=== PATIENT | male | born 1960 | race Caucasian/White ===

== ENCOUNTER 2023-07-30 13:24 | Outpatient (CLI) | payer OTHER, SELFPAY | END 2023-07-30 13:25 | disposition home or self-care (01) | LOC: AMB 08-12 23:47 | PROVIDERS: Visit Provider Family Medicine | DX: S11.91XA Laceration without foreign body of unspecified part of neck, initial encounter (principal); X78.1XXA Intentional self-harm by knife, initial encounter; Y92.009 Unspecified place in unspecified non-institutional (private) residence as the place of occurrence of the external cause | CPT/HCPCS: A0425; A0427 ==

== ENCOUNTER 2023-08-30 12:27 | Outpatient (RCR) | payer OTHER, SELFPAY | END 2023-12-28 23:59 | disposition home or self-care (01) | PROVIDERS: Visit Provider Nurse Practitioner Gerontology | DX: R13.10 Dysphagia, unspecified (principal); F41.9 Anxiety disorder, unspecified; S11.91XA Laceration without foreign body of unspecified part of neck, initial encounter; Z51.89 Encounter for other specified aftercare | CPT/HCPCS: 92610 ==

== ENCOUNTER 2024-05-02 20:58 | Emergency (ER) | payer MEDICAID, SELFPAY ==
[2024-05-02 21:02] VITALS: BP 156/93; PULSE 68; RESP 18; TEMP 37.1; O2SAT 97; BMI 25.5
--- NOTE | 2024-05-02 21:18 | CRLHL7_ITS ---
For Patients: As a result of the Century Cures Act, medical imaging exams and procedure reports are released immediately into your electronic medical record. You may view this report before your referring provider. If you have questions, please contact your health care provider. Indication: Right-sided abdominal and gallbladder pain Technique: CT through the abdomen and pelvis following 84 mL Isovue 370 IV contrast Comparison: None Findings: Lower chest: Mild atelectasis and/or scarring with no acute abnormality appreciated. Hepatobiliary: Mild prominence of the gallbladder lumen with slight wall thickening, nonspecific. Spleen: Unremarkable. Pancreas: No acute abnormality appreciated. Adrenal glands: No acute abnormality appreciated. Kidneys: No significant parenchymal abnormality appreciated. No visualized calculi. No hydronephrosis. Bowel: No obstruction. No focal perienteric or pericolonic stranding is appreciated. The appendix is visualized and appears unremarkable. Vascular: No acute abnormality appreciated. Trace calcified atherosclerosis. Lymph nodes: No gross lymphadenopathy. Peritoneum: No free air. No free fluid. : No acute abnormality appreciated. Soft tissues: No acute abnormality appreciated. Bones: No acute fracture. No lytic or blastic lesion. Degenerative changes of the spine and pelvis. Impression: Small heterogeneous focus along the distal common bile duct, could represent a small focus of pneumobilia or a radiolucent gallstone and choledocholithiasis. Otherwise, there is mild prominence of the gallbladder lumen with slight wall thickening, which is indeterminate for cholecystitis. Ultrasound or MRI/MRCP recommended for further evaluation. Please note that all CT scans at this facility use dose modulation, iterative reconstruction, and/or weight-based dosing when appropriate to reduce radiation dose to as low as reasonably achievable. Dictated by Jens Castro MD @ 05/02/2024 11:36:50 PM (Electronically Signed)
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
[2024-05-02] MEDS: ONDANSETRON 2 MG/ML inj 4 MG IVP (21:45)
[2024-05-02] MEDS: KETOROLAC 15 MG/ML inj IVP (21:45)
[2024-05-02] MEDS: 0.9 % SODIUM CHLORIDE 1000 ml 1,000 ML IV (21:49)
[2024-05-02 21:51] LABS: Lactate* 1.3 mmol/L (0.5-1.9)
[2024-05-02 22:08] LABS: Albumin* 5.2 g/dL (3.3-5.0); Chloride* 104 mmol/L (96-114)
[2024-05-02 22:09] LABS: Potassium* 4.2 mmol/L (3.6-5.1); Sodium* 139 mmol/L (135-149)
[2024-05-02 22:11] LABS: Alanine Aminotransferase* 25 U/L (4-50); Alkaline Phosphatase* 81 U/L (40-150); Anion Gap 7 mEq/L (7-15); Aspartate Amino Transferase* 32 U/L (12-35); Bilirubin Total* 0.7 mg/dL (0.1-1.5); Blood Urea Nitrogen* 15 mg/dL (7-30); Carbon Dioxide* 28 mmol/L (20-32); Creatinine* 0.7 mg/dL (0.5-1.5); Est. Creatinine Clearance* 74.63; Estimated Glomerular Filt Rate 103 ml/min; Glucose* 131 mg/dL (60-115); Lipase* 38 U/L (23-300); Total Protein* 7.4 g/dL (6.0-8.3)
[2024-05-02 22:12] LABS: Calcium* 9.2 mg/dL (8.4-10.6)
[2024-05-02 22:43] LABS: C Reactive Protein* < 0.5 mg/dL (0.5-1.0)
[2024-05-02 22:55] LABS: Basophils Absolute Auto 0.02 K/uL (0.00-0.30); Basophils Percent Auto 0.2 % (0.0-3.0); Eosinophils Absolute Auto 0.02 K/uL (0.00-0.50); Eosinophils Percent Auto 0.2 % (0.0-7.0); Hematocrit 43.9 % (37.0-53.0); Hemoglobin* 14.6 gm/dL (13.5-17.5); Immature Granulocytes Abs Auto 0.09 K/uL (0.00-0.30); Lymphocytes Percent Auto 6.5 % (20-44); Mean Corpuscular HGB Conc 33 gm/dL (32-36); Mean Corpuscular Hemoglobin 29 pg (26-34); Mean Corpuscular Volume 86 fL (80-100); Neutrophils Percent Auto 88.1 % (42.0-72.0); Platelet Count* 173 K/uL (140-440); Red Blood Count 5.08 m/uL (4.30-5.90); White Blood Count* 9.43 K/uL (4.50-11.00)
[2024-05-02 22:58] LABS: Slide Review Reflex No
== END 2024-05-03 00:41 | disposition home or self-care (01) ==
PROVIDERS: Emergency Provider Family Medicine; PCP Family Medicine
DX: K80.50 Calculus of bile duct without cholangitis or cholecystitis without obstruction (principal)
CPT/HCPCS: 36415; 74177; 80053; 81001; 83605; 83690; 85025; 86140; 96374; 96375; 99284; 99285; J1885; J2405; J7030; Q9967

== ENCOUNTER 2024-05-03 09:47 | Day surgery (SDC) | payer MEDICAID, SELFPAY ==
[2024-05-03 09:57] VITALS: BP 143/85; PULSE 82; RESP 18; TEMP 37.2; O2SAT 97; BMI 25.5
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
--- NOTE | 2024-05-03 11:11 | CRLHL7_ITS ---
For Patients: As a result of the Cures Act, medical imaging exams and procedure reports are released immediately into your electronic medical record. You may view this report before your referring provider. If you have questions, please contact your health care provider. INDICATION: Right upper quadrant pain. TECHNIQUE: Ultrasound abdomen limited to evaluation of the gallbladder and common bile duct. COMPARISON: CT abdomen and pelvis 05/02/2024. FINDINGS: Gallbladder: Nonshadowing stones or sludge. Mild wall thickening. No pericholecystic fluid. Common bile duct: 5 mm. No free fluid evident. IMPRESSION: 1. Mild gallbladder wall thickening with nonshadowing stones or sludge. Early cholecystitis may be considered in the appropriate clinical setting. 2. No biliary ductal dilatation. Dictated by Bereket Aguirre MD @ 05/03/2024 12:58:24 PM Dictated by: Bereket Aguirre MD @ 05/03/2024 12:58:40 (Electronically Signed)
[2024-05-03] MEDS: MORPHINE 4 MG/ML INJ IVP (11:30)
[2024-05-03] MEDS: 0.9 % SODIUM CHLORIDE 1000 ml 1,000 ML IV (11:30)
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
--- OUTSIDE RECORDS SUMMARY | 2024-05-03 11:33 | XMS_ITS | Clinical Summary ---
Author Organization [facility] Address [address] [place] [address] Care Team Providers Care Dog Races Manager Name Role Phone Elsewhere, Pcp Primary Care Provider Unavailabl e Source Comments Patient records contain information from all sites at [facility]. For routine questions regarding patient records, call [phone] during business hours, M-F 8:00 AM - 5:00 PM Central Time. Record requests for emergency care only can be directed to [phone] at any time.[facility] Active Problems No known active problems Encounters Date Type Department Care Team Description 03/09/2024 1:30 PM CDT Comprehensive [facility] [place], [place] [address] [place] [address] David Prince III, M.D. Scar (Primary Dx) 03/09/2024 1:00 PM CDT Comprehensive Visit [facility] [place], [place] [address] [place] [address] Ric Watson M.D. Scar (Primary Dx) 03/09/2024 12:00 PM CDT Ancillary Procedure Department of Dermatology from Last 3 Months Family History Medical History Relation Name Comments Colon cancer Father Coronary artery disease Father Relation Name Status Comments Father Social History Tobacco Use Types Packs/Day Years Used Date Smoking Tobacco: Never Assessed Nutrition Answer Date Recorded Nutrition: EVOO Fat Source Unknown 02/14 Nutrition: Servings of Fruits/Vegetables per Day Not on file 02/15/2024 Dental Answer Date Recorded Dental: Regular Dentist Unknown 02/15/20 Sex and Gender Information Value Date Recorded Sex Assigned at Not on file Gender Identity Not on file Sexual Orientation Not on file Plan of Treatment Health Maintenance Due Date Last Done Comments CT Colonography 1960 Cologuard 1960 HIV Screening 1960 Hepatitis C Screening 1960 Depression Screening (Annual PHQ-2) 11/08/2023 DTaP,Tdap,and Td Vaccines (2 - Td or Tdap) 06/19/2026 06/19/2016 Fasting Glucose for Diabetes Screening 07/26/2026 07/26/2023 Lipid (Cholesterol) Screening 12/27/2028 12/27/2023 Colonoscopy 04/21/2029 04/21/2024 Colorectal Cancer Surveillance 04/21/2029 Influenza Vaccine Completed 08/19/2023 COVID-19 Vaccine Completed 10/22/2023, 03/11/2021, 02/18/2021 Zoster Vaccines Completed 02/15/2024, 10/22/2023 Pneumococcal vaccine (0-64 years) Aged Out No longer eligible b ased on patient's age to complete this topic Procedures Procedure Name Priority Date/Time Associated Diagnosis Comments DERMATOLOGY IMAGE EXAM Routine 12:00 PM CDT EXTI LIPID PANEL W REFLEX MEASURED LDL Routine 12/27/2023 8:04 AM CONTACT LENS BLOCKER EXTI COMPREHENSIVE METABOLIC PANEL, S/P Routine 07/26/2023 11:27 AM CDT from Last 3 Months or Most Recently Relevant to Health Maintenance Results * Neck-Dermatology Image Exam (03/09/2024 12:00 PM CDT) 03/09/2024 12:0 0 PM CDT Narrative [facility] - 03/09/2024 1:46 PM CDT This order has been created and auto-finalized to support the import of images acquired without order. The clinical documentation to support these images can be found on the encounter that produced images. Provider Not In System IMG NON RAD IMAGI NG PROCEDURES [facility] NA from Last 3 Months or Most Recently Relevant to Health Maintenance Care Teams Dog Races Manager Relationship Specialty Start Date End Date Elsewhere, Pcp PCP - General 10/21/18
--- OUTSIDE RECORDS SUMMARY | 2024-05-03 11:33 | XMS_ITS | Referral Summary ---
Author Organization [facility] Address [address] [place] [address] Care Team Providers Care Still Operator Helper Name Role Phone Elsewhere, Pcp Primary Care Provider Unavailabl e Source Comments Patient records contain information from all sites at [facility]. For routine questions regarding patient records, call [phone] during business hours, M-F 8:00 AM - 5:00 PM Central Time. Record requests for emergency care only can be directed to [phone] at any time.[facility] Encounters Date Type Department Care Team Description 03/09/2024 1:30 PM CDT [facility] in [place], [place] [address] [place] [address] David Prince III, M.D. Scar (Primary Dx) 03/09/2024 12:00 PM CDT Ancillary Procedure Department of Dermatology 03/09/2024 1:00 PM CDT Comprehensive [facility] [place], [place] [address] [place] [address] Ric Watson M.D. Scar (Primary Dx) from Last 3 Months Active Problems No known active problems Social History Tobacco Use Types Packs/Day Years [...] Orientation Not on file Plan of Treatment Not on file Procedures Procedure Name Priority Date/Time Associated Diagnosis Comments DERMATOLOGY IMAGE EXAM Routine 12:00 PM CDT EXTI LIPID PANEL W REFLEX MEASURED LDL Routine 12/27/2023 8:04 AM POCKET OPERATOR EXTI COMPREHENSIVE METABOLIC PANEL, S/P Routine 07/26/2023 [...] Recently Relevant to Health Maintenance Care Teams Still Operator Helper Relationship Specialty Start Date End Date Elsewhere, Pcp PCP - General 10/21/18
--- OUTSIDE RECORDS SUMMARY | 2024-05-03 11:33 | XMS_ITS | Referral Summary ---
Author Organization [facility] Address [address] [place] [address] Phone Care Team Providers Care Jeweler Apprentice Name Role Phone Unavailable Primary Care Provider Unavailabl e Source Comments Handseeing Information is fully rolled out on [employer]. Last update 04/12/09.[employer] Allergies No known active allergies Medications * [...] 08/18/2023 8:00 PM CDT Plan of Treatment Not on file Medical Devices Implanted Type Area Certified Ophthalmic Surgical Assistant Device Identifier Shelf Expiration Date Model / Serial / Lot Ligaclip,Medium [id number] Implanted:Qty: 6 on 07/30/2023 by Radha Aviles MD at [facility] [employer] 03/07/2028 [id number] / / [id number] Ligaclip,Small Lt100 Implanted:Qty: 6 on 07/30/2023 by Rivera Álvarez MD at [facility] Neck [employer] 03/07/2027 [id number] / / [id number] Procedures Procedure Name Priority Date/Time Associated Diagnosis Comments PANEL LIPID Routine 08/19/2023 8:44 AM CDT PC HIV-1 AG W/HIV-1 & HIV-2 AB Routine 08/09/2023 5:05 PM CDT from Last 3 Months or Most Recently Relevant to Health Maintenance Results * PANEL LIPID (08/19/2023 8:44 AM CDT) Calc LDL 85 <=100 mg/dL [facility] Comment: Interpretive Data <100 Desirable 100-129 Above desirable 130-159 Borderline high 160-189 High >=190 Very high Cholesterol 154 <=200 mg/dL [facility] Comment: Interpretive Data <200 Desirable 200-239 Borderline high >=240 High Non-HDL Cholesterol Calculated 109 <=130 mg/dL [facility] Comment: Interpretive Data <130 Desirable 130-159 Above desirable 160-189 Borderline high 190-219 High >=220 Very high HDL 45 >=40 mg/dL [facility] Comment: Interpretive Data Normal > 40 Male > 50 Female Triglyceride 118 <=150 mg/dL [facility] Comment: Interpretive Data <150 Normal 150-199 Borderline high 200-499 High >=500 Very high Blood 08/19/2023 8:44 AM CDT 08/19/2023 8:49 AM CDT Narrative [facility] - 08/19/2023 9:24 AM CDT Fasting: No Radha Tuttle MD LABORATORY Performing Organization Address City/[facility] Co de Phone Number [facility] [address] [address] * HIV COMBO (08/09/2023 5:05 PM CDT) HIV Antigen-Antibody Nonreactive Nonreactive [facility] Comment:Performance characte ristics have not been established with this test on patients less than 2 years of age. Blood 08/09/2023 5:05 PM CDT 08/09/2023 5:15 PM CDT Radha Aviles MD LABORATORY [facility] [address] [place] [address] from Last 3 Months or Most Recently Relevant to Health Maintenance Advance Directives For more information, please contact: [phone] Documents on File Type Date Recorded Patient United [place] Marshal Expl anation Advance Directives and Living Will [...]
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
--- OUTSIDE RECORDS SUMMARY | 2024-05-03 11:33 | XMS_ITS ---
Author Organization [facility] Address [address] [place] [address] Care Team Providers Care Restaurant Inspector Name Role Phone Unavailable Unavailable Unavailable Surgery Details Not on file Complications Check Surgery Details section. Procedure Estimated Blood Loss Check Surgery Details section. Procedure Findings Check Surgery Details section. Procedure Specimens Taken Check Surgery Details section.
--- OUTSIDE RECORDS SUMMARY | 2024-05-03 11:33 | XMS_ITS | Clinical Summary ---
Author Organization [employer] [facility] Address [place], [place] [address] Care Team Providers Care Knotter Name Role Phone Dionicio Robert MD Primary Care Provider [phone]- [phone] Allergies No known active allergies Medications Medication Sig Dispensed Refills Start Date End Date Status polyethylene glycoL (Miralax) 17 gram/scoop powder Mix 1 scoop in liquid then take by mouth once daily. Active atorvastatin (LIPITOR) 40 mg tabletIndications: CVD (arteriosclerotic cardiovascular disease) Take 1 Tablet (40 mg) by mouth once daily. 90 Tablet 3 11/16/2023 Active polyethylene glycol-electrolyte (GOLYTELY) 236-22.74-6.74 -5.86 gram suspensionIndication s:Encounter for screening colonoscopy Drink 2 liters (1/2 of prep) the day before colonoscopy and drink 2 liters (other 1/2 of prep) 6 hours before colonoscopy appointment. 4000 mL 02/15/2024 Active multivit,thx,calcium ,iron,mins (MULTIVITAMIN AND MINERAL ORAL) Take by mouth. Active gabapentin (NEURONTIN) 100 mg capsuleIndications:A nxiety Take 1 Capsule (100 mg) by mouth every morning. 90 Capsule 1 02/21/2024 Active QUEtiapine (SEROQUEL) 50 mg tabletIndications:Br ief psychotic disorder (HC) Take 1 Tablet (50 mg) by mouth once daily. 90 Tablet 1 02/21/2024 Active Hospital, Clinic, or Other Facility Administered Medication Ordered Dose Route Frequency Start Date End Date Status fentaNYL (PF) (SUBLIMAZE) 50 mcg/mL injection 100 mcgIndications:Screening for colon cancer 100 mcg IV ONE TIME 04/21/2024 04/21/2024 Ended midazolam (VERSED) injection 3 mgIndications:Screening for colon cancer 3 mg IV ONE TIME 04/21/2024 04/21/2024 Ended Active Problems Problem Noted Date Diagnosed Date Colon polyp 04/25/2024 Overview: Colonoscopy 04/2024 TA, repeat in 7 years Anxiety 10/20/2023 Psychosis 10/20/2023 Essential hypertension 10/20/2023 Back spasm 06/19/2016 Encounters Date Type Department Care Team Description 04/21/2024 8:00 AM CDT Office Visit [facility] [address] [facility] [place] [address] Dawood King MD Procedure (Colonoscopy) 04/21/2024 Travel 04/18/2024 Telephone [facility] [address] [facility] [place] [address] Dawood King MD Appointment Reminder (Colonoscopy 04/21/24) 03/13/2024 8:00 AM CDT Ancillary Procedure [address] [place] [address] 03/13/2024 Travel 02/22/2024 3:45 PM CDT Office Visit [facility] [address] [facility] [place] [address] Argelia Mcgrath MD Consult (Gallbladder referred by Dr. Robert) 02/22/2024 1:30 PM CDT Office Visit [facility] [place] [address] Dionicio Robert MD Results (Go over the ultrasound results) 02/21/2024 7:30 AM CDT Office Visit [facility] [place] [facility] [place] [address] Elsa Casanova NP Medication Management (Things are going good) 02/21/2024 Travel 02/18/2024 8:15 AM CDT Ancillary Procedure [facility] [address] [facility] [place] [address] 02/18/2024 Travel 02/15/2024 2:45 PM CDT Office Visit [address] [place] [address] Dionicio Robert MD Abdominal Pain (RUQ abdominal pain - comes and goes x 1 month); Immunization/Inject ion 02/15/2024 Telephone [facility] [address] [place] [address] Dawood King MD Appointment 02/15/2024 Travel 02/15/2024 Nurse Triage [facility] [address] [place] [address] Dionicio Robert MD Abdominal Pain from Last 3 Months Immunizations Name Administration Dates Next Due COVID-19 Vaccine Spikevax (M oderna 50mcg/0.5mL) 12YO+ [id number] Formula PF 10/22/2023 Influenza Virus, Unspecified 08/19/2023 Influenza, IIV4 08/19/2023 Tdap 06/19/2016 Zoster (Shingrix-RZV, recombinant) 02/15/2024, Family History Medical History Relation Name Comments Cancer-colon Father Rectal Heart Disease Father Stents, CABGx4 at 77 Other Mother hemorrhoids Relation Name Status Comments Father Mother Social History Tobacco Use Types Packs/Day Years Used Date Smoking Tobacco: Never Passive Smoke Exposure: Never Smokeless Tobacco: Never Tobacco Cessation:Counseling Given: Yes Alcohol Use Standard Drinks/Week Comments Not Currently 0 (1 standard drink = 0.6 oz pur e alcohol) PHQ-2 Answer Date Recorded PHQ-2 TOTAL SCORE 0 02/21/2024 Social Connections Answer Date Recorded Frequency of Communication with Friends and Fami ly 0 02/15/2024 Financial Resource Strain Answer Date R ecorded Difficulty of Paying Living Expenses 3 02/15/2024 Difficulty of Paying Living Expenses Not on file 02/15/2024 Food Insecurity Answer Date Recorded Worried About Running Out of Food in the Last Ye ar 1 02/15/2024 Transportation Needs Answer Date Record ed Lack of Transportation (Medical) 1 02/15/2024 Housing Stability Answer Date Recorded Unable to Pay for Housing in the Last Year 1 02/15/2024 Sex and Gender Information Value Date Recorded Sex Assigned at Not on file Gender Identity Not on file Sexual Orientation Not on file Obstetrics History Last Filed Vital Signs Vital Sign Reading Time Taken Comments Blood Pressure 114/69 04/21/2024 9:16 AM CDT Pulse 61 04/21/2024 9:16 AM CDT Temperature 36.7 ??C (98.1 ??F) 02/15/2024 2:51 PM CD T Respiratory Rate 14 04/21/2024 9:16 AM CDT Oxygen Saturation 97% 04/21/2024 9:16 AM CDT Inhaled Oxygen Concentration - - Weight 82.5 kg (181 lb 14.4 oz) 02/22/2024 3:50 PM CDT Height 174 cm (5' 8.5) 07/26/2023 10:4 4 AM CDT Body Mass Index 27.26 07/26/2023 10:44 AM CDT Plan of Treatment Upcoming Encounters Date Type Department Care Team (Late st Contact Info) Description 05/22/2024 8:20 AM CDT Office Visit [facility] [address] [place] [address] Yogi Romano MD [address] [place] [address] 06/26/2024 7:30 AM CDT Office Visit [facility] [address] [place] [address] Elsa Casanova NP [address] [place] [address] Health Maintenance Due Date Last Done Comments HIV for age 15-65 1975 Hepatitis C screening for age 18-79 1978 Influenza for age 50-64 07/09/2024 08/19/2023, 08/19 BMI (ht and wt on same day) for age 18+ 07/26/2024 07/26/2023, 05/05/2021, 06/19/2016 Depression screening for age 12+ 02/21/2025 02/22/2024, 02/22/2024, 02/21/2024, Additional history exists Tetanus booster 06/19/2026 06/19/2016 Lipids for age 45-75 12/27/2028 12/27/2023, 06/24/20 16 Colonoscopy through age 75 04/21/203104/21, 04/21/2024, 04/21/2024 Tdap Completed 06/19/2016 COVID-19 vaccine series Completed 10/22/20, 03/11/2021, 02/18/2021 Zoster (shingles) series for age 50+ Completed 02/15/2024, 10/22/2023 Pneumococcal series for age 6-64 Aged Out No longer eligible based on patient's age to complete this topic Procedures Procedure Name Priority Date/Time Associated Diagnosis Comments PATH TISSUE EXAM Routine 04/21/2024 8:39 AM CDT Screening for colon cancer Polyp of colon, unspecified part of colon, unspecified type COLONOSCOPY 04/21/2024 7:54 AM CDT COLONOSCOPY SCREENING Routine 04/21/2024 7:49 AM CDT Screening for colon cancer MR ABDOMEN WWO Routine 03/13/2024 9:12 AM CDT Gall bladder polyp vs. sludge HEPATIC FUNCTION PANEL Routine 02/22/2024 4:26 PM CDT Gall bladder polyp vs. sludge US ABDOMEN LIMITED Routine 02/18/2024 8: 44 AM CDT Abdominal pain, RUQ (right upper quadrant) LIPID PANEL W REFLEX MEASURED LDL Routine 12/27/2023 8:04 AM PODIATRIC AIDE ASCVD (arteriosclerotic cardiovascular disease) from Last 3 Months or Most Recently Relevant to Health Maintenance Results * PATH TISSUE EXAM (04/21/2024 8:39 AM CDT) Case Report Pathology Report ?Case: [id number] ? Authorizing Provider: ??Dawood King MD ?? Collected: ? 04/21/2024 0839 ? Ordering Location: ? [facility] ?? Received: ?04/21/2024 1239 ? Clinic ? Pathologist: ? Darcy James, ? Specimen: ?Transverse Colon Polyp ? 04/24/2024 11:13 AM CDT [facility] Final Diagnosis A) COLON, TRANSVERSE, POLYPECTOMY: 1. Tubular adenoma 2. Negative for high grade dysplasia 3. Per the colonoscopy report: ?? a. Polyp size: 3 mm ?? b. Resection: Complete ?? c. Retrieval: Complete 04/24/2024 11:13 AM T [facility] Clinical Information Mr. Leigh is a 64 y.o. who presents for colonoscopy examination. A 3 mm polyp was identified in the transverse colon. 04/24/2024 11:13 AM CDT [facility] Gross Description A) Received in formalin are 3 danielle mucosal fragments ranging from 1 mm to 3 mm in greatest dimension, which are entirely submitted in one cassette. It is labeled with the patient's name and designated Soniya Baires 04/22/2024 10:53 AM 04/24/2024 11:13 AM CDT [facility] Microscopic Description The final diagnosis is based on microscopic examination of appropriate sections of all specimens. 04/24/2024 11:13 AM CDT [facility] Additional Information Interpreted at [facility] - [address] [place] [address] [address] [address] 04/24/2024 11:13 AM CDT [facility] Other (Transverse Colon Polyp) Non-Blood / Unknown 04/21/2024 8:39 AM CDT 04/21/2024 12:39 PM CDT Dawood King MD PATHOLOGY/CYTOLOG Y Performing Organization Address City/State/[facility] Co de Phone Number [facility] [address] [place] [address], * COLONOSCOPY (04/21/2024 7:54 AM CDT) 04/21/2024 7:54 AM CDT Narrative Transcriptions Dawood King MD - 04/21/2024 9:04 AM CDT Patient Name: Bony Leigh Procedure Date: 04/21/2024 Gender: Male Date of : 1960 Admit Type: Outpatient Procedure: Colonoscopy Proceduralist: Dawood King MD , Michelle Arroyo, CASSY(Nurse), Joy Han (Nurse) Referring MD: Dionicio Robert Indications/Pre-Op Diagnosis: Screening for colorectal malignant neoplasm, This is the patient's first colonoscopy Medications: Fentanyl 100 micrograms IV, Midazolam 3 mgIV, The level of sedation administered wasmoderate Procedure Description: The patient had risks, benefits and alternatives explained to andgave informed consent. The patient had a stable cardiopulmonary status and judged an adequate candidate for conscious sedation. The [id number] was passed through the anus and advanced to the cecum, identified by appendiceal orifice and ileocecal valve. Thecolonoscopy was performed without difficulty. The patient tolerated the procedure well. The quality of the bowel preparation was good. The ileocecal valve, appendiceal orifice, and rectum were photographed. Complications: No immediate complications. Estimated Blood Loss & Specimen: Estimated blood loss: none. Specimen collected - Yes and sent to Laboratory Findings: The perianal and digital rectal examinations were normal. A 3 mm polyp was found in the proximal transverse colon. The polypwas sessile. The polyp was removed with a cold snare. Resection and retrieval were complete. The exam was otherwise without abnormality. Impressions/Post-Op Diagnosis: - One 3 mm polyp in the proximal transverse colon, removed with acold snare. Resected and retrieved. - The examination was otherwise normal. Recommendation: - Patient has a contact number available for emergencies. The signsand symptoms of potential delayed complications were discussed with the patient. Return to normal activities tomorrow. Written discharge instructions were provided to the patient. - Resume previous diet. - Continue present medications. - Await pathology results. - Repeat colonoscopy is recommended. The colonoscopy date will be determined after pathology results from today's exam become available for review. Moderate Sedation: A time out was performed before the procedure. Moderate (conscious) sedation was administered by the endoscopy nurse and supervised bythe endoscopist. The following parameters were monitored: oxygensaturation, heart rate, blood pressure, EKG, CO2, respiratory rate, adequacy of pulmonary ventilation and reponse to care. Please refer to the patient's medical record flowsheets and nursing notes for moderate sedation details. Total physician intraservice time was 21 minutes. Dawood King MD 04/21/2024 9:04:55 AM This report has been signed electronically. Note Initiated On: 04/21/2024 7:54 AM Procedure Code(s): --- Professional --- 58670, Colonoscopy, flexible; with removalof tumor(s), polyp(s), or other lesion(s) bysnare technique Diagnosis Code(s): --- Professional --- Z12.11, Encounter for screening formalignant neoplasm of colon D12.3, Benign neoplasm of transverse colon (hepatic flexure or splenic flexure) CPT copyright 2022 [employer]. All rights reserved. The codes documented in this report are preliminary and upon electrical systems designer reviewmay be revised to meet current compliance requirements. Scope In: 8:32:52 AM Scope Withdrawal Time 0 hours 8 minutes 57 seconds Scope Out: 8:51:03 AM Dawood King MD PROCEDURE ORD * MR ABDOMEN W/WO CONTRAST (03/13/2024 9:12 AM CDT) Anatomical Region Laterality Modality Abdomen, LIVER, PANCREAS, KIDNEYS, AORTA Magnetic Resonance 03/14/2024 6:47 AM CDT Impressions 03/14/2024 6:47 AM CDT 1. Negative for gallbladder polyp/mass. Gallbladder sludge noted. 2. Flash-filling 0.8 cm liver segment 6 hemangioma and multiple subcentimeter liver cysts. 3. Subcentimeter left renal parenchymal cyst. Dictated by Christiano Javier MD @ 03/14/2024 6:47:53 AM (Electronically Signed) Narrative 03/14/2024 6:47 AM CDT For Patients: ??As a result of the 21st Century Cures Act, medical imaging exams and procedure reports are released immediately into your electronic medical record. ??You may view this report before your referring provider. ??If you have questions, please contact your health care provider. INDICATION: Gallbladder polyp versus adherent sludge ball as seen on ultrasound TECHNIQUE: Multiplanar imaging of the abdomen was performed without and with 8 cc of Gadavist contrast material IV. COMPARISON: Right upper quadrant ultrasound 02/18/2000 FINDINGS: The masslike structure seen in the gallbladder on the previous ultrasound has no corresponding finding on this examination. No gallbladder wall thickening or abnormal contrast enhancement along the gallbladder wall is evident. Dependent gallbladder sludge is noted in the neck. Bile duct dilation is evident. The liver is normal in size and shape. A flash-filling 0.8 cm hemangioma is demonstrated in the periphery of liver segment 6. Multiple subcentimeter cysts are also demonstrated in the liver. The liver is otherwise unremarkable. The spleen, adrenal glands and pancreas are within normal limits. The kidneys are unremarkable except for a subcentimeter left renal parenchymal cyst. No lymphadenopathy is apparent. No intrinsic bowel abnormality is evident. No free fluid is demonstrated. Procedure Note Christiano Javier MD - 03/14/2024 For Patients: As a result of the Cures Act, medical imagingexams and procedure reports are released immediately into your electronicmedical record. You may view this report before your referring provider.If you have questions, please contact your health care provider. INDICATION: Gallbladder polyp versus adherent sludge ball as seen on ultrasound TECHNIQUE: Multiplanar imaging of the abdomen was performed without and with 8 cc ofGadavist contrast material IV. COMPARISON: Right upper quadrant ultrasound 02/18/2000 FINDINGS: The masslike structure seen in the gallbladder on the previous ultrasoundhas no corresponding finding on this examination. No gallbladder wallthickening or abnormal contrast enhancement along the gallbladder wall isevident. Dependent gallbladder sludge is noted in the neck. Bile ductdilation is evident. The liver is normal in size and shape. A flash-filling 0.8 cm hemangiomais demonstrated in the periphery of liver segment 6. Multiplesubcentimeter cysts are also demonstrated in the liver. The liver isotherwise unremarkable. The spleen, adrenal glands and pancreas are within normal limits. Thekidneys are unremarkable except for a subcentimeter left renal parenchymalcyst. No lymphadenopathy is apparent. No intrinsic bowel abnormality isevident. No free fluid is demonstrated. IMPRESSION: 1. Negative for gallbladder polyp/mass. Gallbladder sludge noted. 2. Flash-filling 0.8 cm liver segment 6 hemangioma and multiplesubcentimeter liver cysts. 3. Subcentimeter left renal parenchymal cyst. Dictated by Christiano Javier MD @ 03/14/2024 6:47:53 AM (Electronically Signed) Argelia Mcgrath MD MR * HEPATIC FUNCTION PANEL (02/22/2024 4:26 PM CDT) ALBUMIN 4.5 4.0 - 4.9 g/dL 02/23/2024 1:54 PM CDT [facility] PROTEIN,TOTAL 6.6 6.0 - 8.0 g/dL 02/23/2024 1:54 PM CDT [facility] BILIRUBIN,TOTAL 0.3 0.0 - 1.2 mg/dL 02/23/2024 1:54 PM CDT [facility] BILIRUBIN,DIRECT <0.2 0.0 - 0.3 mg/dL 02/23/2024 1:54 PM CDT [facility] BILIRUBIN,INDIRE CT 02/23/2024 1:54 PM CDT [facility] Comment:Unable to calculate, Direct Bili <0.2 ALK PHOSPHATASE 102 40 - 129 IU/L 02/23/2024 1:54 PM CDT [facility] ALT (SGPT) 30 10 - 50 IU/L 02/23/2024 1:54 PM CDT [facility] AST (SGOT) 38 10 - 50 IU/L 02/23/2024 1:54 PM CDT [facility] Blood BLOOD SPECIMEN / Unknown Venipuncture / Unknown 02/22/2024 4:26 PM CDT 02/22/2024 4:26 PM CDT Argelia Mcgrath MD CHEMISTRY [facility] [address] [place] [address], [place] * US ABDOMEN LIMITED (02/18/2024 8:44 AM CDT) Anatomical Region Laterality Modality Abdomen, LIVER, KIDNEYS, PANCREAS, GALLBLADDER, SPLEEN Ultrasound 02/18/2024 3:25 PM CDT Impressions 02/18/2024 3:25 PM CDT Adherent ovoid structure associated with the dependent gallbladder wall measuring 1.7 cm, possible polyp versus adherent sludge ball. No biliary obstruction. Dictated by Alonzo Tineo MD @ 02/18/2024 3:25:46 PM (Electronically Signed) Narrative 02/18/2024 3:25 PM CDT For Patients: ??As a result of the Cures Act, medical imaging exams and procedure reports are released immediately into your electronic medical record. ??You may view this report before your referring provider. ??If you have questions, please contact your health care provider. INDICATION: Abdominal pain COMPARISON: none TECHNIQUE: Real time gillette scale imaging and color Doppler analysis was performed of the right upper quadrant. FINDINGS: The patient`s liver is of normal size and has uniform echogenicity. ??There is a normal appearance of the hepatic IVC and proximal abdominal aorta. There is no evidence of ascites. The gallbladder is of normal size and there is an ovoid structure associated with the posterior gallbladder wall at the gallbladder neck measuring 1.7 cm. The gallbladder wall measures 2 mm in thickness. ??The common bile duct is of normal size and measures 5 mm in diameter at the level of the lilia hepatis. ??The pancreas is not well visualized. There is no evidence of a stone or hydronephrosis within the right kidney. ??The right kidney measures 11.4 cm in length. ?? Procedure Note Alonzo Tineo MD - 02/18/2024 For Patients: As a result of the Cures Act, medical imagingexams and procedure reports are released immediately into your electronicmedical record. You may view this report before your referring provider.If you have questions, please contact your health care provider. INDICATION: Abdominal pain COMPARISON: none TECHNIQUE: Real time gillette scale imaging and color Doppler analysis was performed ofthe right upper quadrant. FINDINGS: The patient`s liver is of normal size and has uniform echogenicity. Thereis a normal appearance of the hepatic IVC and proximal abdominal aorta.There is no evidence of ascites. The gallbladder is of normal size andthere is an ovoid structure associated with the posterior gallbladder wallat the gallbladder neck measuring 1.7 cm. The gallbladder wall measures 2mm in thickness. The common bile duct is of normal size and measures 5 mmin diameter at the level of the lilia hepatis. The pancreas is not wellvisualized. There is no evidence of a stone or hydronephrosis within theright kidney. The right kidney measures 11.4 cm in length. IMPRESSION: Adherent ovoid structure associated with the dependent gallbladder wallmeasuring 1.7 cm, possible polyp versus adherent sludge ball. No biliaryobstruction. Dictated by Alonzo Tineo MD @ 02/18/2024 3:25:46 PM (Electronically Signed) Dionicio Robert MD US * LIPID PANEL W REFLEX MEASURED LDL (12/27/2023 8:04 AM PODIATRIC AIDE) CHOLESTEROL,TOTAL 139 100 - 199 mg/dL 12/27/2023 2:19 PM PODIATRIC AIDE [facility] [employer] [facility] Comment: Cholesterol, Total Reference Ranges Desirable <200 mg/dL Borderline 200-239 mg/dL High >=240 mg/dL TRIGLYCERIDES 105 <150 mg/dL 12/27/2023 2:19 PM PODIATRIC AIDE [facility] HDL CHOLESTEROL 62 >40 mg/dL 2:19 PM PODIATRIC AIDE [facility] NON-HDL CHOLESTEROL 77 <145 mg/dl 12/27/2023 2:19 PM PODIATRIC AIDE [facility] CHOL/HDL RATIO 2.24 <4.50 12/27/2023 2:19 PM PODIATRIC AIDE [facility] LDL CHOLESTEROL 56 <=130 mg/dL 12/27/2023 2:19 PM PODIATRIC AIDE [facility] VLDL CHOLESTEROL 21 <=30 mg/dL 12/27/2023 2:19 PM PODIATRIC AIDE [facility] PROVIDER ORDERED STATUS RANDOM 12/27/2023 2:19 PM PODIATRIC AIDE [facility] Blood BLOOD SPECIMEN / Unknown Venipuncture / Unknown 12/27/2023 8:04 AM PODIATRIC AIDE 12/27/2023 8:06 AM PODIATRIC AIDE Mack Turcios MD CHEMISTRY [facility] [address] [place] [address], from Last 3 Months or Most Recently Relevant to Health Maintenance Care Teams Knotter Relationship Specialty Start Date End Date Dionicio Robert MD [address] [place] [address] PCP - General Family Practice 06/17/16
--- OUTSIDE RECORDS SUMMARY | 2024-05-03 11:33 | XMS_ITS | Encounter Summary ---
Author Organization [facility] Address [address] [place] [address] Care Team Providers Care Cylinder Sander Operator Name Role Phone Elsewhere, Pcp Primary Care Provider Unavailabl e Encounter Details Date Type Department Care Team (Late st Contact Info) Description 03/09/2024 12:00 PM CDT Ancillary Procedure Department of Dermatology Social History Tobacco Use Types Packs/Day Years [...] on file documented as of this encounter Plan of Treatment Not on file documented as of this encounter Procedures Procedure Name Priority Date/Time Associated Diagnosis Comments DERMATOLOGY IMAGE EXAM Routine 03/09/2024 12:00 PM CDT documented in this encounter Results * Neck-Dermatology Image Exam (03/09/2024 12:00 [...] NON RAD IMAGI NG PROCEDURES IIMS NA documented in this encounter Visit Diagnoses Not on filedocumented in this encounter Care Teams Cylinder Sander Operator Relationship Specialty Start Date End Date Elsewhere, Pcp PCP - General 10/21/18 documented as of this encounter
[2024-05-03 12:29] LABS: Basophils Percent Auto 0.1 % (0.0-3.0); Hematocrit 42.7 % (37.0-53.0); Hemoglobin* 14.1 gm/dL (13.5-17.5); Immature Granulocytes Pct Auto 0.1 %; Lymphocytes Percent Auto 3.1 % (20-44); Mean Corpuscular HGB Conc 33 gm/dL (32-36); Mean Corpuscular Hemoglobin 29 pg (26-34); Mean Corpuscular Volume 88 fL (80-100); Monocytes Percent Auto 7.9 % (0.0-11.0); Neutrophils Percent Auto 88.8 % (42.0-72.0); Platelet Count* 136 K/uL (140-440); RDW Coefficient of Variation % 13.2 % (11.5-15.5); Red Blood Count 4.88 m/uL (4.30-5.90); White Blood Count* 12.09 K/uL (4.50-11.00)
[2024-05-03 12:56] LABS: Albumin* 4.5 g/dL (3.3-5.0); Chloride* 105 mmol/L (96-114)
[2024-05-03 12:57] LABS: Sodium* 137 mmol/L (135-149)
[2024-05-03 12:58] LABS: Slide Review Reflex No
[2024-05-03 12:59] LABS: Anion Gap 7 mEq/L (7-15); Aspartate Amino Transferase* 32 U/L (12-35); Bilirubin Direct* 0.2 mg/dL (0.0-0.5); Bilirubin Total* 1.2 mg/dL (0.1-1.5); Carbon Dioxide* 25 mmol/L (20-32); Creatinine* 0.6 mg/dL (0.5-1.5); Est. Creatinine Clearance* 74.63; Estimated Glomerular Filt Rate 108 ml/min; Total Protein* 6.7 g/dL (6.0-8.3)
[2024-05-03] MEDS: KETOROLAC 15 MG/ML inj IVP (12:59)
[2024-05-03 13:00] LABS: Alanine Aminotransferase* 24 U/L (4-50); Alkaline Phosphatase* 72 U/L (40-150); Blood Urea Nitrogen* 13 mg/dL (7-30); Calcium* 8.6 mg/dL (8.4-10.6); Glucose* 119 mg/dL (60-115); Lipase* 111 U/L (23-300)
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
[2024-05-03 13:02] LABS: C Reactive Protein* 1.8 mg/dL (0.5-1.0)
[2024-05-03 14:04] VITALS: BP 143/85; PULSE 83; RESP 18; TEMP 36.8; O2SAT 98; BMI 26.2
[2024-05-03 14:15] VITALS: RESP 18; O2SAT 98
[2024-05-03 15:00] VITALS: RESP 18; O2SAT 98
[2024-05-03] MEDS: PIPERACILLIN/TAZOBACTAM 3.375 GM in 0.9 % SODIUM CHLORIDE Mini-bag 100 ML IVPB ×2 (15:59→20:39)
[2024-05-03] MEDS: LACTATED RINGERS 1000 ML 1,000 ML 125 ML IV ×2 (16:01→23:33)
--- NOTE | 2024-05-03 18:03 | PC.NURSE ---
shift note: pt to floor with 0/10 pain. abd slightly distended and tender in RUQ on palpation. BS x4. last stated BM 05/02/24. IV Lt AC patent.
[2024-05-03 19:00] VITALS: BP 137/86; PULSE 92; RESP 18; TEMP 37.3; O2SAT 93
[2024-05-03] MEDS: HYDROmorphone 0.5 mg/0.5 ml inj IVP ×2 (19:12→20:44)
[2024-05-03] MEDS: QUETIAPINE 25 MG TABLET 50 MG PO (20:39)
[2024-05-03] MEDS: HYDROCODONE-ACETAMIN 5-325 MG 1 TAB PO (21:14)
[2024-05-03 23:00] VITALS: BP 116/78; PULSE 78; RESP 20; TEMP 36.8; O2SAT 93
[2024-05-04] VITALS (22 sets, daily range): BP systolic 103–153; BP diastolic 66–87; PULSE 68–102; RESP 14–18; TEMP 36.7–37.8; O2SAT 87–96
[2024-05-04] MEDS: HYDROmorphone 0.5 mg/0.5 ml inj IVP (02:24)
[2024-05-04] MEDS: PIPERACILLIN/TAZOBACTAM 3.375 GM in 0.9 % SODIUM CHLORIDE Mini-bag 100 ML IVPB ×2 (02:24→07:44)
[2024-05-04] MEDS: HYDROCODONE-ACETAMIN 5-325 MG 1 TAB PO ×2 (02:58→20:00)
--- NOTE | 2024-05-04 05:51 | PC.NURSE ---
End of shift report [id number]: Patient alert and oriented x 4. Pain to upper right abdomen well managed with current regimen. NPO since 05/03/24 at 0100. Abdomen firm and tender to the touch. Ambulates independently.
--- OUTSIDE RECORDS SUMMARY | 2024-05-04 07:55 | XMS_ITS | Referral Summary ---
Author Organization [facility] Address [address] [place] [phone] Phone Care Team Providers Care Claims Service Representative Name Role Phone Unavailable Primary Care Provider Unavailabl e Source Comments EnWave is fully rolled out on [employer]. Last update 04/12/09.[employer] Allergies No known active allergies Medications * [...] on file Medical Devices Implanted Type Area Marketing And Public Relations Manager Device Identifier Shelf Expiration Date Model / Serial / Lot Ligaclip,Medium [id number] Implanted:Qty: 6 on 07/30/2023 by Radha Aviles MD at [facility] [employer] 03/07/2028 [id number] / / [id number] Ligaclip,Small Lt100 Implanted:Qty: 6 on 07/30/2023 by Rivera Álvarez MD at [facility] [employer]ck [employer] 03/07/2027 [id number] / / [id number] Procedures Procedure Name Priority Date/Time Associated Diagnosis Comments PANEL LIPID Routine 08/19/2023 8:44 AM CDT PC HIV-1 AG W/HIV-1 & HIV-2 AB Routine 08/09/2023 5:05 PM CDT from Last 3 Months or Most Recently Relevant to Health Maintenance Results * PANEL LIPID (08/19/2023 8:44 AM CDT) Calc LDL 85 <=100 mg/dL [facility] Comment: Interpretive Data <100 Desirable 100-129 Above desirable 130-159 Borderline high 160-189 High >=190 Very high Cholesterol 154 <=200 mg/dL [facility] Comment: Interpretive Data <200 Desirable 200-239 Borderline high >=240 High Non-HDL Cholesterol Calculated 109 <=130 mg/dL [facility] Comment: Interpretive Data <130 Desirable 130-159 Above desirable 160-189 Borderline high 190-219 High >=220 Very high HDL 45 >=40 mg/dL [facility] Comment: Interpretive Data Normal > 40 Male > 50 Female Triglyceride 118 <=150 mg/dL [facility] Comment: Interpretive Data <150 Normal 150-199 Borderline high 200-499 High >=500 Very high Blood 08/19/2023 8:44 AM CDT 08/19/2023 8:49 AM CDT Narrative [facility] - 08/19/2023 9:24 AM CDT Fasting: No Radha Tuttle MD LABORATORY Performing Organization Address City/[facility] Co de Phone Number [facility] [address] [address] * HIV COMBO (08/09/2023 5:05 PM CDT) HIV Antigen-Antibody Nonreactive Nonreactive [facility] Comment:Performance characte ristics have not been established with this test on patients less than 2 years of age. Blood 08/09/2023 5:05 PM CDT 08/09/2023 5:15 PM CDT Radha Aviles MD LABORATORY [facility] [address] [place] [address] from Last 3 Months or Most Recently Relevant to Health Maintenance Advance Directives For more information, please contact: [phone] Documents on File Type Date Recorded Patient Sign Builder Supervisor Expl anation Advance Directives and Living Will [...]
--- OUTSIDE RECORDS SUMMARY | 2024-05-04 07:55 | XMS_ITS | Encounter Summary ---
Author Organization [facility] Address [address] [place] [address] Care Team Providers Care Flooring Grader Name Role Phone Elsewhere, Pcp Primary Care [...] on filedocumented in this encounter Care Teams Flooring Grader Relationship Specialty Start Date End Date Elsewhere, Pcp PCP - General 10/21/18 documented as of this encounter
--- OUTSIDE RECORDS SUMMARY | 2024-05-04 07:55 | XMS_ITS | Encounter Summary ---
Author Organization [facility] Address [address] [place] [address] Care Team Providers Care Kennel Supervisor Name Role Phone Elsewhere, Pcp Primary Care Provider Unavailabl e Encounter Details Date Type Department Care Team (Latest Contact Info) Description 03/09/2024 1:30 PM CDT [facility] [place], [place] [address] [place] [address] David Prince III, M.D. [address] [place] [address] Scar (Primary Dx) Social History Tobacco Use [...] Primary documented in this encounter Care Teams Kennel Supervisor Relationship Specialty Start Date End Date Elsewhere, Pcp PCP - General 10/21/18 documented as of this encounter
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
--- OUTSIDE RECORDS SUMMARY | 2024-05-04 07:55 | XMS_ITS | Clinical Summary ---
Author Organization [facility] Address [address] [place] [phone] Phone Care Team Providers Care Chief Pharmacist Name Role Phone Unavailable Primary Care Provider Unavailabl e Source Comments Collections is fully rolled out on [email or web address]. Last update 04/12/09.[employer] Allergies No known active allergies Medications * [...] this topic Medical Devices Implanted Type Area Alining Inspector Device Identifier Shelf Expiration Date Model / Serial / Lot Ligaclip,Medium [id number] Implanted:Qty: 6 on 07/30/2023 by Radha Aviles MD at [facility] [employer] 03/07/2028 [id number] / / [id number] Ligaclip,Small Lt100 Implanted:Qty: 6 on 07/30/2023 by Rivera Álvarez MD at [facility] [employer]ck [employer] 03/07/2027 [id number] / / [id number] Procedures Procedure Name Priority Date/Time Associated Diagnosis Comments PANEL LIPID Routine 08/19/2023 8:44 AM CDT PC HIV-1 AG W/HIV-1 & HIV-2 AB Routine 08/09/2023 5:05 PM CDT from Last 3 Months or Most Recently Relevant to Health Maintenance Results * PANEL LIPID (08/19/2023 8:44 AM CDT) Calc LDL 85 <=100 mg/dL [facility] Comment: Interpretive Data <100 Desirable 100-129 Above desirable 130-159 Borderline high 160-189 High >=190 Very high Cholesterol 154 <=200 mg/dL [facility] Comment: Interpretive Data <200 Desirable 200-239 Borderline high >=240 High Non-HDL Cholesterol Calculated 109 <=130 mg/dL [facility] Comment: Interpretive Data <130 Desirable 130-159 Above desirable 160-189 Borderline high 190-219 High >=220 Very high HDL 45 >=40 mg/dL [facility] Comment: Interpretive Data Normal > 40 Male > 50 Female Triglyceride 118 <=150 mg/dL [facility] Comment: Interpretive Data <150 Normal 150-199 Borderline high 200-499 High >=500 Very high Blood 08/19/2023 8:44 AM CDT 08/19/2023 8:49 AM CDT Narrative [facility] - 08/19/2023 9:24 AM CDT Fasting: No Radha Tuttle MD LABORATORY [facility] [address] [address] * HIV COMBO (08/09/2023 5:05 PM CDT) [facility] HIV Antigen-Antibody Nonreactive Nonreactive [facility] Comment:Performance characte ristics have not been established with this test on patients less than 2 years of age. Blood 08/09/2023 5:05 PM CDT 08/09/2023 5:15 PM CDT Radha Aviles MD LABORATORY [facility] [address] [address] from Last 3 Months or Most Recently Relevant to Health Maintenance Advance Directives For more information, please contact: [phone] Documents on File Type Date Recorded Patient Household Appliance Repairer Expl anation Advance Directives and Living Will [...]
--- OUTSIDE RECORDS SUMMARY | 2024-05-04 07:55 | XMS_ITS | Referral Summary ---
Author Organization [facility] Address [address] [place] [address] Care Team Providers Care Food Service Order Clerk Name Role Phone Elsewhere, Pcp Primary Care Provider Unavailabl e Source Comments Patient records contain information from all sites at [facility]. For routine questions regarding patient records, call [phone] during business hours, M-F 8:00 AM - 5:00 PM Central Time. Record requests for emergency care only can be directed to [phone] at any time.[facility] Encounters Date Type Department Care Team Description 03/09/2024 1:30 PM CDT Comprehensive [facility] in [place], [place] [address] [place] [address] David Prince III, M.D. Scar (Primary Dx) 03/09/2024 12:00 PM CDT Ancillary Procedure Department of Dermatology 03/09/2024 1:00 PM CDT Comprehensive [facility] in [place], [place] [address] [place] [address] Ric Watson M.D. Scar (Primary Dx) from [...] REFLEX MEASURED LDL Routine 12/27/2023 8:04 AM EXTRUSION MACHINE OPERATOR EXTI COMPREHENSIVE METABOLIC PANEL, S/P Routine [...] Recently Relevant to Health Maintenance Care Teams Food Service Order Clerk Relationship Specialty Start Date End Date Elsewhere, Pcp PCP - General 10/21/18
--- OUTSIDE RECORDS SUMMARY | 2024-05-04 07:55 | XMS_ITS | Clinical Summary ---
Author Organization [facility] Address [address] [place] [address] Care Team Providers Care Auto Air Conditioning Installer Name Role Phone Elsewhere, Pcp Primary Care Provider Unavailabl e Source Comments Patient records contain information from all sites at [facility]. For routine questions regarding patient records, call [phone] during business hours, M-F 8:00 AM - 5:00 PM Central Time. Record requests for emergency care only can be directed to [phone] at any time.[facility] Active Problems No known active problems Encounters Date Type Department Care Team Description 03/09/2024 1:30 PM CDT Comprehensive Visit [facility] in [place], [place] [address] [place] [address] David Prince III, M.D. Scar (Primary Dx) 03/09/2024 1:00 PM CDT Comprehensive Visit [facility] [place], [place] [address] [place] [address] Ric Watson M.D. Scar (Primary Dx) 03/09/2024 [...] REFLEX MEASURED LDL Routine 12/27/2023 8:04 AM TECHNICAL SOLUTIONS ENGINEER EXTI COMPREHENSIVE METABOLIC PANEL, S/P Routine 07/26/2023 [...] Recently Relevant to Health Maintenance Care Teams Auto Air Conditioning Installer Relationship Specialty Start Date End Date Elsewhere, Pcp PCP - General 10/21/18
--- OUTSIDE RECORDS SUMMARY | 2024-05-04 07:55 | XMS_ITS ---
Author Organization [facility] Address [address] [place] [address] Care Team Providers Care Superintendent Board Mill Name Role Phone Unavailable Unavailable Unavailable Surgery Details Not on file Complications Check Surgery Details section. Procedure Estimated Blood Loss Check Surgery Details section. Procedure Findings Check Surgery Details section. Procedure Specimens Taken Check Surgery Details section.
--- OUTSIDE RECORDS SUMMARY | 2024-05-04 07:55 | XMS_ITS | Clinical Summary ---
Author Organization [employer] Address [place], [place] [address] Care Team Providers Care Transport Analyst Name Role Phone Dionicio Robert MD Primary Care Provider [phone]- [phone] Allergies No known active allergies Medications Medication [...] Encounters Date Type Department Care Team Description 05/03/2024 Telephone [facility] [address] [place] [address] Argelia Mcgrath MD Concerns (gallbladder) 04/21/2024 8:00 AM CDT Office Visit [address] [address] Dawood King MD Procedure (Colonoscopy) 04/21/2024 Travel 04/18/[address] [address] Dawood King MD Appointment Reminder (Colonoscopy 04/21/24) 03/13/2024 8:00 AM CDT Ancillary Procedure [address] [address] 03/13/2024 Travel 02/22/2024 3:45 PM CDT Office Visit [address] [address] Argelia Mcgrath MD Consult (Gallbladder referred by Dr. Robert) 02/22/2024 1:30 PM CDT Office Visit [address] [address] Dionicio Robert MD Results (Go over the ultrasound results) 02/21/2024 7:30 AM CDT Office Visit [address] [address] Elsa Casanova NP Medication Management (Things are going good) 02/21/2024 Travel 02/18/2024 8:15 AM CDT Ancillary Procedure [address] [address] 02/18/2024 Travel 02/15/2024 2:45 PM CDT Office Visit [facility] [address] [place] [address] Dionicio Robert MD Abdominal Pain (RUQ abdominal pain - comes and goes x 1 month); Immunization/Inject ion 02/15/2024 Telephone [facility] [address] [place] [address] Dawood King MD Appointment 02/15/2024 Travel 02/15/2024 Nurse Triage [facility] [address] [place] [address] Dionicio Robert MD Abdominal Pain from Last 3 Months Immunizations Name Administration Dates Next Due COVID-19 Vaccine Spikevax (M oderna 50mcg/0.5mL) 12YO+ [id number] Formula PF 10/22/2023 Influenza Virus, Unspecified 08/19/2023 [...] Description 05/22/2024 8:20 AM CDT Office Visit [facility] [address] [place] [address] Yogi Romano MD [address] [place] [address] 06/26/2024 7:30 AM CDT Office Visit [facility] [address] [place] [address] Elsa Casanova NP [address] [place] [address] Health Maintenance Due Date Last Done Comments [...] Tdap Completed 06/19/2016 COVID-19 vaccine series Completed 10/22/20 23, 03/11/2021, 02/18/2021 Zoster (shingles) series for age [...] REFLEX MEASURED LDL Routine 12/27/2023 8:04 AM BOX CAR CHECKER ASCVD (arteriosclerotic cardiovascular disease) from Last 3 Months or Most Recently Relevant to Health Maintenance Results * PATH TISSUE EXAM (04/21/2024 8:39 AM CDT) Case Report Pathology Report ?Case: [id number] ? Authorizing Provider: ??Dawood King MD ?? Collected: ? 04/21/2024 0839 ? Ordering Location: ? [facility] ?? Received: ?04/21/2024 1239 ? Clinic ? Pathologist: ? Darcy James DO ? Specimen: ?Transverse Colon Polyp ? 04/24/2024 11:13 AM CDT [facility] Final Diagnosis A) COLON, TRANSVERSE, POLYPECTOMY: 1. Tubular adenoma 2. Negative for high grade dysplasia 3. Per the colonoscopy report: ?? a. Polyp size: 3 mm ?? b. Resection: Complete ?? c. Retrieval: Complete 04/24/2024 11:13 AM CDT [facility] Clinical Information Mr. Leigh is a 64 y.o. who presents for colonoscopy examination. A 3 mm polyp was identified in the transverse colon. 04/24/2024 11:13 AM CDT [facility] Gross Description A) Received in formalin are 3 danielle mucosal fragments ranging from 1 mm to 3 mm in greatest dimension, which are entirely submitted in one cassette. It is labeled with the patient's name and designated Soniya Baires 04/22/2024 10:53 AM 04/24/2024 11:13 AM CDT [facility] Microscopic Description The final diagnosis is based on microscopic examination of appropriate sections of all specimens. 04/24/2024 11:13 AM CDT [facility] Additional Information Interpreted at [facility] - [address] [facility] [address], [place] [address] 04/24/2024 11:13 AM CDT [facility] Other (Transverse Colon Polyp) Non-Blood / Unknown 04/21/2024 8:39 AM CDT 04/21/2024 12:39 PM CDT Dawood King MD PATHOLOGY/CYTOLOG Y [facility] [address] [place] [address], * COLONOSCOPY (04/21/2024 7:54 AM CDT) 04/21/2024 7:54 AM CDT Narrative Transcriptions Dawood King MD - 04/21/2024 9:04 AM CDT Patient Name: Bony Leigh Procedure Date: 04/21/2024 Gender: Male Date of : 1960 Admit Type: Outpatient Procedure: Colonoscopy Proceduralist: Dawood King MD , Michelle Arroyo RN(Nurse), Joy Han (Nurse) Referring MD: Dionicio Robert [...] an adequate candidate for conscious sedation. The [id number] was passed through the anus and advanced [...] 7:54 AM Procedure Code(s): --- Professional --- 73975, Colonoscopy, flexible; with removalof tumor(s), polyp(s), or other lesion(s) bysnare technique Diagnosis Code(s): --- Professional --- Z12.11, Encounter for screening formalignant neoplasm of colon D12.3, Benign neoplasm of transverse colon (hepatic flexure or splenic flexure) CPT copyright 2022 [employer]. All rights reserved. The codes documented in this report are preliminary and upon tourist information assistant reviewmay be revised to meet current compliance [...] left renal parenchymal cyst. Dictated by Christiano aJvier MD @ 03/14/2024 6:47:53 AM (Electronically Signed) Argelia Mcgrath MD MR * HEPATIC FUNCTION PANEL (02/22/2024 4:26 PM CDT) ALBUMIN 4.5 4.0 - 4.9 g/dL 02/23/2024 1:54 PM CDT [facility] PROTEIN,TOTAL 6.6 6.0 - 8.0 g/dL 02/23/2024 1:54 PM CDT [facility] BILIRUBIN,TOTAL 0.3 0.0 - 1.2 mg/dL 02/23/2024 1:54 PM CDT [facility] BILIRUBIN,DIRECT <0.2 0.0 - 0.3 mg/dL 02/23/2024 1:54 PM CDT [facility] BILIRUBIN,INDIRE CT 02/23/2024 1:54 PM CDT [facility] Comment:Unable to calculate, Direct Bili <0.2 ALK PHOSPHATASE 102 40 - 129 IU/L 02/23/2024 1:54 PM CDT [facility] ALT (SGPT) 30 10 - 50 IU/L 02/23/2024 1:54 PM CDT [facility] AST (SGOT) 38 10 - 50 IU/L 02/23/2024 1:54 PM CDT [facility] Blood BLOOD SPECIMEN / Unknown Venipuncture / Unknown 02/22/2024 4:26 PM CDT 02/22/2024 4:26 PM CDT Argelia Mcgrath MD CHE[facility]STRY [facility] [address] [place] [address], [place] * US ABDOMEN LIMITED (02/18/2024 8:44 [...] W REFLEX MEASURED LDL (12/27/2023 8:04 AM BOX CAR CHECKER) CHOLESTEROL,TOTAL 139 100 - 199 mg/dL 12/27/2023 2:19 PM [facility] Comment: Cholesterol, Total Reference Ranges Desirable <200 mg/dL Borderline 200-239 mg/dL High >=240 mg/dL TRIGLYCERIDES 105 <150 mg/dL 12/27/2023 2:19 PM BOX CAR CHECKER [facility] HDL CHOLESTEROL 62 >40 mg/dL 2:19 PM BOX CAR CHECKER [facility] NON-HDL CHOLESTEROL 77 <145 mg/dl 12/27/2023 2:19 PM BOX CAR CHECKER [facility] CHOL/HDL RATIO 2.24 <4.50 12/27/2023 2:19 PM BOX CAR CHECKER [facility] LDL CHOLESTEROL 56 <=130 mg/dL 12/27/2023 2:19 PM BOX CAR CHECKER [facility] VLDL CHOLESTEROL 21 <=30 mg/dL 12/27/2023 2:19 PM [facility] PROVIDER ORDERED STATUS RANDOM 12/27/2023 2:19 PM [facility] Blood BLOOD SPECIMEN / Unknown Venipuncture / Unknown 12/27/2023 8:04 AM BOX CAR CHECKER 12/27/2023 8:06 AM BOX CAR CHECKER Mack Turcios MD CHEMISTRY [facility] [address] [place] [address], from Last 3 Months or Most Recently Relevant to Health Maintenance Care Teams Transport Analyst Relationship Specialty Start Date End Date Dionicio Robert MD [address] [place] [address] PCP - General Family Practice 06/17/16
[2024-05-04] MEDS: GABAPENTIN 100 MG CAPSULE PO (09:49)
--- NOTE | 2024-05-04 10:16 | W.ANESCHARGE ---
Anesthesia Charges Start Date/Time Anesthesia Start Date: 05/04/24 Anesthesia Start Time: 10:42 Stop Date/Time Anesthesia Stop Date: 05/04/24 Anesthesia Stop Time: 12:52
--- NOTE | 2024-05-04 10:21 | PM.GSPRC ---
Operative Note Date of procedure: 05/04/24 Pre-op diagnosis: Acute cholecystitis Post-op diagnosis: Same Type of Procedure: Laparoscopic cholecystectomy Indications: The patient is a 64-year-old male who presented to the emergency department with right upper quadrant pain. He has a known history of gallbladder sludge, at 1 point thought to be a polyp which was ruled out after MRI. He had been managing his symptoms expectantly until this severe episode which began 2 days ago. Workup revealed acute cholecystitis. He was admitted to the hospital with plans for cholecystectomy. Procedure Description: After discussing the risks and benefits of the procedure, the patient signed informed consent.? The operative site was marked and the patient was brought to the operating room and placed on the operating table in supine position.? Care was taken to pad the patient's pressure points.?? The patient was then intubated by anesthesia.?? The operative site was then prepped and draped in the usual sterile fashion.? A time-out was then performed. Entrance to the abdomen was gained via a 5 mm Visiport in the right upper quadrant. The abdomen was insufflated. There were adhesions noted along the midline and upper abdomen, however the right upper quadrant appeared relatively free of adhesions. I then placed a 5 mm port under direct vision in the right lateral abdomen. I placed the camera through here. I was able then to see that there was a are no adhesions at the umbilicus, however there were omental adhesions to the anterior abdominal wall which precluded visualization. Using a scissor, I took down the adhesions sharply, dividing only wispy fibers with care to avoid injuring the omentum or the colon which was visible posteriorly. I was then able to bluntly sweep the omental fat away from the midline to create space to place my final 5 mm port in the epigastric region. This was placed, and a 10 mm scope was then advanced through the umbilical port. There was some blood staining on what appeared to be the transverse colon below my entrance port site. Using a suction manager speech I irrigated a small clot that was on the pericolonic fat. There did not appear to be any serosal injury here. The patient was then placed in reverse Trendelenburg position with the right side up. The gallbladder was distended and edematous. There was fibrinous exudate noted on the omentum around the gallbladder. There was ascites in the left right upper quadrant. A needle was used to decompress the gallbladder. Clear bile returned. The fundus was then grasped and retracted cephalad. A small amount of dissection was needed to free omental adhesions from the gallbladder. The infundibulum was grasped. The gallbladder was markedly edematous and bled easily. The cystic artery was visible on the gallbladder just above the node of Calot. Because of the amount of inflammation and hemorrhagic tissue, I dissected this out on the gallbladder and clipped this with 2 clips proximal and 1 clip distal. I was then able to peel this downward after dividing it with a Metzenbaum scissor to facilitate dissection of the duct. A combination of hook cautery and blunt dissection with the suction manager speech was used to carefully dissect out the cystic duct until it could clearly be seen entering the gallbladder without any intervening structures. The gallbladder was dissected off the cystic plate to achieve the critical view. Once this was achieved the cystic duct was clipped with 2 clips proximally and 1 clip distally and transected with the scissors. The gallbladder was then taken off of the liver bed and removed from the abdomen using an Endo-Catch bag. The gallbladder bed was surveyed for hemostasis which appeared adequate. A small amount of bile and sludge which had spilled was suctioned from the abdomen. The ports were then removed and the abdomen desufflated. The umbilical port fascia was closed with 0 Vicryl. The skin was closed with absorbable subcuticular suture. Sterile dressings were then applied. Instrument sponge and needle counts were correct at the end of the case. The patient was then woken and transferred to the PACU in stable condition. ? The patient tolerated the procedure well. Findings: 1. Intra-abdominal adhesions from prior laparotomy 2. Acute cholecystitis with cholelithiasis 3. Gallbladder hydrops [facility] Sur[facility]: Argelia Mcgrath MD Estimated blood loss (mL): 10 Specimen: Gallbladder Condition: stable Disposition: PACU
[2024-05-04] MEDS: BUPIVACAINE 0.25% 30 ML INJECTION (12:34)
--- NOTE | 2024-05-04 12:52 | W.ANESCHARGE ---
Anesthesia Charges Start Date/Time Anesthesia Start Date: 05/04/24 Anesthesia Start Time: 10:42 Stop Date/Time Anesthesia Stop Date: 05/04/24 Anesthesia Stop Time: 12:52
[2024-05-04] MEDS: LACTATED RINGERS 1000 ML 1,000 ML 125 ML IV (17:15)
--- NOTE | 2024-05-04 19:45 | PC.NURSE ---
Nursing Care Hours: [id number] Pt this shift prepped for surgery in AM. Pain controlled. Arrived from PACU at 1320 alert and oriented, no c/o pain, VSS. VS remained stable rest of recovery. Up to void in bathroom. Eating regular diet drinking fluids. Incisions CDI. IV infiltrated and four attempts for new IV failed. Pt requesting oral ABX and getting frustrated with so many attempts this stay. Telephone order from DR Mcgrath taken for new PO ABX and ok to leave IV out.
[2024-05-04] MEDS: AMOXICILLIN/CLAVULANATE 875 mg/125 mg TABLET PO (20:00)
[2024-05-04] MEDS: QUETIAPINE 25 MG TABLET 50 MG PO (21:15)
[2024-05-04] MEDS: ACETAMINOPHEN 325 MG TABLET 650 MG PO (21:28)
[2024-05-05] MEDS: HYDROCODONE-ACETAMIN 5-325 MG 1 TAB PO
[2024-05-05 00:30] VITALS: TEMP 37.8
[2024-05-05 03:00] VITALS: BP 120/76; PULSE 96; RESP 16; TEMP 37.4; O2SAT 92
--- NOTE | 2024-05-05 06:10 | PC.NURSE ---
End of shift [id number]: Pleasant and cooperative with cares. pain to abdomen well managed with PRN norco, declined ice pack to op site, education provided. At 2330 patient feeling warm, sweaty and having pain under left scapula. Temp 100.1 at that time, patient reduced amount of covers and medication provided. Follow up 1 hour later and temp 99.9. 4 lap sites clean, dry and intact. No signs or symptoms of infection noted. Tolerating food and fluids, denies nausea or vomiting. Bowel sounds active x 4. Denies passing flatus at this time. Up independently. Left IV site that infiltrated free of s&sx of infection, warm pack applied.
[2024-05-05 06:33] LABS: Eosinophils Absolute Auto 0.01 K/uL (0.00-0.50); Eosinophils Percent Auto 0.1 % (0.0-7.0); Hematocrit 38.4 % (37.0-53.0); Hemoglobin* 12.9 gm/dL (13.5-17.5); Immature Granulocytes Abs Auto 0.02 K/uL (0.00-0.30); Immature Granulocytes Pct Auto 0.2 %; Lymphocytes Percent Auto 7.7 % (20-44); Mean Corpuscular HGB Conc 34 gm/dL (32-36); Mean Corpuscular Hemoglobin 29 pg (26-34); Mean Corpuscular Volume 87 fL (80-100); Monocytes Percent Auto 9.8 % (0.0-11.0); Neutrophils Percent Auto 82.2 % (42.0-72.0); Platelet Count* 139 K/uL (140-440); RDW Coefficient of Variation % 13.3 % (11.5-15.5); Red Blood Count 4.44 m/uL (4.30-5.90); White Blood Count* 10.69 K/uL (4.50-11.00)
[2024-05-05 06:51] LABS: Slide Review Reflex No
[2024-05-05 07:38] VITALS: BP 107/68; PULSE 88; RESP 16; TEMP 36.4; O2SAT 93
[2024-05-05] MEDS: AMOXICILLIN/CLAVULANATE 875 mg/125 mg TABLET PO (08:27)
[2024-05-05] MEDS: ATORVASTATIN CALCIUM 40 MG TABLET PO (08:28)
[2024-05-05] MEDS: GABAPENTIN 100 MG CAPSULE PO (08:28)
[2024-05-05 11:01] VITALS: BP 107/82; PULSE 84; RESP 16; TEMP 36.5; O2SAT 94
--- NOTE | 2024-05-05 11:09 | P.DS_ITS ---
DS: Providers Provider Date Seen: 05/05/24 Primary care physician: Dionicio Robert MD Admitting Clinician: Argelia Mcgrath MD, FACS Attending Physician on discharge: Argelia Mcgrath MD, FACS Date of Discharge: 05/05/24 DS: Diagnosis Discharge Diagnosis (1) Cholecystitis: Status: Acute (2) S/P laparoscopic cholecystectomy: Status: Acute DS: Summary Hospital Course Hospital Course: The patient is a 64-year-old male who was admitted to the hospital with acute cholecystitis. He underwent laparoscopic cholecystectomy on 05/04/2024. Was admitted overnight. He did well postoperatively. He was tolerating a diet, had excellent pain control with oral medication and was deemed safe for discharge home. Time Spent with Patient Time attestation: Total time spent providing and/or coordinating discharge services: Exam Narrative: Exam Narrative: General: No acute distress CV: Regular rate respiratory: Breathing nonlabored abdomen: Appropriately tender for the postop state. Incisions are clean and dry without erythema. Const: Vital Signs, click to edit/add: Vital Signs - 24 hr 05/04/24 12:47 05/04/24 12:55 05/04/24 13:00 Temperature 98.1 F Pulse Rate 68 77 77 Pulse Rate [Right Pulse Oximeter] Respiratory Rate 16 16 16 Blood Pressure 144/77 H 144/81 H 133/76 Blood Pressure [Ri ght Arm] Pulse Oximetry 96 96 93 Oxygen Delivery Me thod Nasal Cannula Nasal Cannula Room Air Oxygen Flow Rate 6 6 Fraction of Inspir ed Oxygen 100 100 05/04/24 13:05 05/04/24 13:10 05/04/24 13:15 Temperature 98.8 F Pulse Rate 81 78 77 Pulse Rate [Right Pulse Oximeter] Respiratory Rate 16 16 16 Blood Pressure 118/77 106/66 109/69 Blood Pressure [Ri ght Arm] Pulse Oximetry 94 95 93 Oxygen Delivery Me thod Room Air Room Air Room Air Oxygen Flow Rate Fraction of Inspir ed Oxygen 05/04/24 13:20 05/04/24 13:26 05/04/24 13:30 Temperature 98.7 F Pulse Rate 83 84 Pulse Rate [Right Pulse Oximeter] Respiratory Rate 14 16 Blood Pressure 114/77 114/75 Blood Pressure [Ri ght Arm] Pulse Oximetry 87 L 96 89 Oxygen Delivery Me thod Room Air Room Air Oxygen Flow Rate 6 Fraction of Inspir ed Oxygen 100 05/04/24 13:45 05/04/24 14:00 05/04/24 14:15 Temperature Pulse Rate 83 88 82 Pulse Rate [Right Pulse Oximeter] Respiratory Rate Blood Pressure 103/76 110/77 113/71 Blood Pressure [Ri ght Arm] Pulse Oximetry 92 92 Oxygen Delivery Me thod Room Air Room Air Oxygen Flow Rate Fraction of Inspir ed Oxygen 05/04/24 14:45 05/04/24 15:00 05/04/24 15:00 Temperature 98.5 F Pulse Rate 83 Pulse Rate [Right Pulse Oximeter] Respiratory Rate 16 18 Blood Pressure 107/75 Blood Pressure [Ri ght Arm] Pulse Oximetry 92 91 Oxygen Delivery Me thod Room Air Room Air Oxygen Flow Rate Fraction of Inspir ed Oxygen 05/04/24 15:15 05/04/24 16:00 05/04/24 17:00 Temperature Pulse Rate 89 87 87 Pulse Rate [Right Pulse Oximeter] Respiratory Rate Blood Pressure 118/76 120/83 121/81 Blood Pressure [Ri ght Arm] Pulse Oximetry 91 Oxygen Delivery Me thod Room Air Room Air Room Air Oxygen Flow Rate Fraction of Inspir ed Oxygen 05/04/24 18:00 05/04/24 21:28 05/04/24 23:00 Temperature 99.9 F H Pulse Rate 90 Pulse Rate [Right Pulse Oximeter] Respiratory Rate 18 Blood Pressure 128/83 Blood Pressure [Ri ght Arm] Pulse Oximetry Oxygen Delivery Me thod Room Air Oxygen Flow Rate Fraction of Inspir ed Oxygen 05/04/24 23:00 05/04/24 23:00 05/05/24 00:30 Temperature 100.1 F H 100.1 F H Pulse Rate Pulse Rate [Right Pulse Oximeter] 102 H Respiratory Rate 18 18 Blood Pressure Blood Pressure [Ri ght Arm] 153/87 H Pulse Oximetry 91 91 Oxygen Delivery Me thod Room Air Room Air Oxygen Flow Rate Fraction of Inspir ed Oxygen 05/05/24 03:00 05/05/24 07:38 05/05/24 07:38 Temperature 99.4 F 97.6 F Pulse Rate Pulse Rate [Right Pulse Oximeter] 96 88 Respiratory Rate 16 16 16 Blood Pressure Blood Pressure [Ri ght Arm] 120/76 107/68 Pulse Oximetry 92 93 93 Oxygen Delivery Me thod Room Air Room Air Room Air Oxygen Flow Rate 0 0 Fraction of Inspir ed Oxygen 05/05/24 07:38 05/05/24 11:01 Temperature 97.7 F Pulse Rate Pulse Rate [Right Pulse Oximeter] 84 Respiratory Rate 16 16 Blood Pressure Blood Pressure [Ri ght Arm] 107/82 Pulse Oximetry 94 Oxygen Delivery Me thod Room Air Oxygen Flow Rate Fraction of Inspir ed Oxygen DS: Data Data Completed and Pending Labs on day of discharge: Labs from last 24 hours 05/05/24 06:08 WBC 10.69 RBC 4.44 Hgb 12.9 L Hct 38.4 MCV 87 MCH 29 MCHC 34 RDW Coeff of Mariano 13.3 Plt Count 139 L Neut % (Auto) 82.2 H Lymph % (Auto) 7.7 L [place] % (Auto) 9.8 Eos % (Auto) 0.1 Baso % (Auto) 0.0 Neut # (Auto) 8.80 H Lymph # (Auto) 0.80 L [place] # (Auto) 1.00 H Eos # (Auto) 0.01 Baso # (Auto) 0.00 Abs Immat Gran (auto) 0.02 Imm/Tot Granulo (auto) 0.2 Discharge Plan Discharge Disposition: Home w/ Parent or Adult Discharging Surgeon: Argelia Mcgrath Follow-Up Appointment: 2 weeks - sriram Prescriptions: New hydrocodone-acetaminophen 5-325 mg Tablet 1 - 2 tab PO Q6H PRN (Reason: Pain) Qty: 15 0RF Continued atorvastatin 40 mg tablet 40 mg PO DAILY gabapentin 100 mg capsule 100 mg PO DAILY CertaVite Senior 0.4 mg-300 mcg- 250 mcg tablet 1 tab PO DAILY quetiapine [Seroquel] 50 mg tablet 50 mg PO DAILY Activity Level: Activity as Tolerated and No strenuous activity Activity Detail: No lifting more than 20 lb for 2 weeks Discharge Diet: Regular Patient Instructions: General Anesthesia (DC), Laparoscopic Cholecystectomy (DC), Post-Operative Instructions: Laparoscopic Cholecystectomy Additional Instructions: Wound care: Your sutures are under the skin and will dissolve over time. Leave steri strips (white bandages) over incisions until they fall off (or remove after 7 days). OK to shower tomorrow but avoid bathing, soaking or swimming for 2 weeks. Pat the incisions dry. No need to wash or scrub the area. Apply ice to the area as needed for swelling. It is also OK to use a heating pad if this provides more comfort to you. Pain control: You were prescribed a pain medication. This medication contains acetaminophen (Tylenol). If you are taking your prescribed pain pills 4 times daily, do not take additional acetaminophen. As your pain improves, you can try taking acetaminophen instead of the prescribed pain pill. It is ok to take Ibuprofen or Naproxen (per directions on packaging). This medication helps with inflammation and swelling. Take an jbvi-bhu-xvunxbq stool softener while you are taking prescribed pain medications to help alleviate constipation. I recommend Senna and/or Colace. Take as directed on package. If you have not had a bowel movement in 3 days, try taking Miralax as directed on the package. All of these are available over the counter. Follow-up Follow up with Dr. Mcgrath in 2-3 weeks Please call if you are experiencing severe pain, nausea, vomiting, difficulty urinating, fever or have not had bowel movement in 4 days after surgery. Follow-up: Dionicio Robert MD [Primary Care Provider] - Argelia Mcgrath MD [Staff Physician] - Discharge Orders: Discharge Order (Routine); Ordered 05/05/24 Ordered By: Argelia Mcgrath
--- NOTE | 2024-05-05 12:43 | PC.NURSE ---
Pt alert and oriented. Pt had complaints of pain of a two. Pt up independently. Pt does not have an IV in place. Pt's steristrips dry and intact. Pt discharged home with .
== END 2024-05-05 12:08 | disposition home or self-care (01) ==
LOC: ED 05-04 07:55 → SS 05-04 07:55 → MEDSURG 05-04 08:19
PROVIDERS: Surgery; Emergency Provider Family Medicine; PCP Family Medicine; Visit Provider Surgery
PROC: 0FT44ZZ Resection of Gallbladder, Percutaneous Endoscopic Approach (ICD-10-PCS; CPT 47562; principal; 2024-05-04 09:15)
DX: K80.00 Calculus of gallbladder with acute cholecystitis without obstruction (principal); K82.8 Other specified diseases of gallbladder; K82.1 Hydrops of gallbladder; E78.5 Hyperlipidemia, unspecified; I07.1 Rheumatic tricuspid insufficiency
CPT/HCPCS: 47562; 00790; 36415; 76705; 80048; 80076; 83690; 85025; 86140; 88304; 93005; 99284; 99285; A9270; J0330; J0665; J0690; J1100; J1170; J1885; J2270; J2405; J2543; J2704; J3010; J7030; J7120

== ENCOUNTER 2024-05-17 08:00 | Outpatient (RCR) | payer MEDICAID, OTHER, SELFPAY | END 2024-05-17 09:44 | disposition home or self-care (01) | PROVIDERS: Visit Provider Family Medicine | DX: M54.2 Cervicalgia (principal); M26.609 Unspecified temporomandibular joint disorder, unspecified side; M25.612 Stiffness of left shoulder, not elsewhere classified; M25.512 Pain in left shoulder; Z74.09 Other reduced mobility; M62.81 Muscle weakness (generalized); R29.898 Other symptoms and signs involving the musculoskeletal system; R29.3 Abnormal posture; Z51.89 Encounter for other specified aftercare | CPT/HCPCS: 97110; 97112; 97140; 97161; 97535; J0330; J0690; J1100; J1885; J2405; J2704; J3010 ==

== ENCOUNTER 2025-10-03 09:52 | Emergency (ER) | payer MEDICARE, SELFPAY ==
[2025-10-03] VITALS (8 sets, daily range): BP systolic 103–120; BP diastolic 65–86; PULSE 77–87; RESP 14–31; TEMP 36.6; O2SAT 94–98; BMI 26.3
--- OUTSIDE RECORDS SUMMARY | 2025-10-03 09:56 | XMS_ITS | Clinical Summary ---
Author Organization [facility] Address [address] [place] [address] Care Team Providers Care Casting Cleaner Name Role Phone Elsewhere, Pcp Primary Care Provider Unavailabl e Source Comments Patient records contain information from all sites at [facility]. For routine questions regarding patient records, call [phone] during business hours, M-F 8:00 AM - 5:00 PM Central Time. 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[employer] Gender Identity Not on file Sexual Orientation Not on file Plan of Treatment Health Maintenance Due Date Last Done Comments CT Colonography 1960 Cologuard 1960 HIV Screening 1960 Hepatitis C Screening 1960 Pneumococcal vaccine (50+ years) (1 of 1 - PCV) 2010 Depression Screening (Annual PHQ-2) 11/08/2024 Fall Risk Screen (Annual) 2025 COVID-19 Vaccine (4 - 2024-2 6 season) 2025 10/22/2023, 03/11/2021, 02/18/2021 Influenza Vaccine (#1) 2025 08/19/2023 DTaP,Tdap,and Td Vaccines (2 - Td or Tdap) 06/19/2026 06/19/2016 Fasting Glucose for Diabetes Screening 07/26/2026 07/26/2023 Colonoscopy 04/21/2029 04/21/2024 Colorectal Cancer Surveillance 04/21/2029 Zoster Vaccines Completed 02/15/2024, 10/22/2023 IPV Vaccines Aged Out No longer eligi ble based on patient's age to complete this topic Insurance [facility] Care Teams Casting Cleaner Relationship Specialty Start Date End Date Elsewhere, Pcp PCP - General 10/21/18
--- OUTSIDE RECORDS SUMMARY | 2025-10-03 09:56 | XMS_ITS | Clinical Summary ---
Author Organization [facility] Address [address] [place] [id number] Care Team Providers Care Mortarman Name Role Phone Dionicio Robert MD Primary Care Provider [phone] Allergies No known active allergies Medications polyethylene glycoL (Miralax) 17 gram/scoop powder Mix 1 scoop in liquid then take by mouth once daily. Active QUEtiapine 50 mg tabletIndications: Brief psychotic disorder (HC) Take 0.5-1 Tablets (25-50 mg) by mouth at bedtime. for sleep/ anxiety 90 Tablet 3 5 Active multivit,odilia,mn-fo evl-Q6-kdyev (One A Day Men Complete) 240-25-300 mcg tab Take by mouth. Active atorvastatin (LIPITOR) 40 mg tabletIndications: ASCVD (arteriosclerotic cardiovascular disease),Coronary artery calcification Take 1 Tablet (40 mg) by mouth once daily. 90 Tablet 3 5 Active atorvastatin (LIPITOR) 40 mg tabletIndications: ASCVD (arteriosclerotic cardiovascular disease),Coronary artery calcification Take 1 Tablet (40 mg) by mouth once daily. 90 Tablet 3 4 10/02/20 25 Discontin ued(Reord er (E-cancel not sent)) Active Problems Problem Noted Date Diagnosed Date Atrial fibrillation, unspecified type 10/02/2025 Coronary artery calcification 09/29/2024 Prediabetes 09/29/2024 Colon polyp 04/25/2024 Overview (04/25/2024): Colonoscopy 04/2024 TA, repeat in 7 years Anxiety 10/20/2023 Psychosis 10/20/2023 Essential hypertension 10/20/2023 Back spasm 06/19/2016 Encounters Date Type Department Care Team Description 10/02/2025 8:20 AM BLOCK LAYER Office Visit [facility] [address] [place] [address] Dionicio Robert MD Medicare WELCOME Visit (65 years); Immunization/Injectio n 10/02/2025 Travel 07/16/2025 Telephone [facility] [address] [place] [address] Elsa Casanova NP Form (Letter for DOT) from Last 3 Months Immunizations Immunization Administration Dates Next Due COVID-19 VACCINE SPIKEVAX (M ODERNA 50MCG/0.5ML) 12YO+ PFS 10/22/2023 INFLUENZA, IIV3 PF (AGE >= 6 MO) 09/29/2024 Influenza Virus, Unspecified 08/19/2023 Influenza, IIV4 08/19/2023 Influenza, Inactivated IIV3 (Age 65+ Years) Preserv Free 10/02/2025 Tdap 06/19/2016 Zoster (Shingrix-RZV, recombinant) 02/15/2024, Family History Medical History Relation Name Comments Cancer-colon Father Rectal Heart Disease Father Stents, CABGx4 at 77 Dementia Mother Hip fracture Mother Other Mother hemorrhoids BRCA1 Positive Sister 2 Kelsey prophylactic bilateral mastectomy Relation Name Status Comments Brother Alive Father Alive Mother Alive Sister 1 Josefina Alive Sister 2 Kelsey Alive Social History Tobacco Use Types Packs/Day Years Used Date Smoking Tobacco: Never Passive Smoke Exposure: Never Smokeless Tobacco: Never Tobacco Cessation:Counseling Given: Yes Alcohol Use Standard Drinks/Week Comments Not Currently 0 (1 standard drink = 0.6 oz pur e alcohol) PHQ-2 Answer Date Recorded PHQ-2 TOTAL SCORE 0 10/02/2025 Social Connections Answer Date Recorded Do you often feel lonely or isolated from those around you? 0 10/02/2025 Alcohol Use Answer Date Recorded How often do you have a drink containing alcohol ? 0 10/02/2025 Average Number of Drinks Not on file 025 Frequency of Binge Drinking Not on file 09/09 Financial Resource Strain Answer Date R ecorded Difficulty of Paying Living Expenses 3 10/02/2025 Difficulty of Paying Living Expenses Not on file 10/02/2025 Food Insecurity Answer Date Recorded Do you worry your food will run out before you are able to buy more? 1 10/02/2025 Transportation Needs Answer Date Record ed Does lack of transportation keep you from medica l appointments? 1 10/02/2025 Does lack of transportation keep you from work, meetings or getting things that you need? 1 10/02/2025 Housing Stability Answer Date Recorded What is your housing situation today? 1 10/02/2025 Utilities Answer Date Recorded Do you have trouble paying f or utilities (for example, heat, electricity, water, phone)? 1 10/02/2025 Sex and Gender Information Value Date Recorded Sex Assigned at Not on file Legal Sex Male 5:26 AM BLOCK LAYER Gender Identity Not on file Sexual Orientation Not on file Occupation Industry Job Start Date Job End Date [employer] Not on file Not on file Not on file Obstetrics History Last Filed Vital Signs Vital Sign Reading Time Taken Comments Blood Pressure 123/67 10/02/2025 8:34 AM BLOCK LAYER Pulse 62 10/02/2025 8:34 AM BLOCK LAYER Temperature 36.2 C (97.1 F) 09/29/2024 1:27 PM BLOCK LAYER Respiratory Rate 16 11/03/2024 11:1 3 AM BLOCK LAYER Oxygen Saturation 97% 10/02/2025 8:34 AM BLOCK LAYER Inhaled Oxygen Concentration - - Weight 78.9 kg (173 lb 14.4 oz) 10/02/2025 8:34 AM BLOCK LAYER Height 173.6 cm (5' 8.35) 10/02/2025 8:34 AM CS T Body Mass Index 26.17 10/02/2025 8:34 AM BLOCK LAYER Plan of Treatment Health Maintenance Due Date Last Done Comments HIV for age 15-65 1975 Hepatitis C screening for age 18-79 1978 Pneumococcal series for age 50+ (1 of 2 - PCV) 1979 RSV vaccine for adults or (1 - Risk 50-74 years 1-dose series) 2010 COVID-19 vaccine series ( season) 2025 10/22/2023, 03/11/2021, 02/18/2021 Tetanus booster 06/19/2026 06/19/2016 BMI (ht and wt on same day) for age 18+ 10/02/2026 10/02/2025, 11/03/2024, 10/17/2024, Additional history exists Depression screening for age 12+ 10/02/2026 10/02/2025, 02/26/2025, 10/17/2024, Additional history exists Medicare Wellness for age 65+ 10/03/2026 10/02/2025 Lipids for age 45-75 10/02/2030 10/02/2025, 09/29/2024, 12/27/2023, Additional history exists Colonoscopy through age 75 04/21/203104/21, 04/21/2024, 04/21/2024 Zoster (shingles) series for age 50+ Completed 02/15/2024, 10/22/2023 Influenza Vaccine Completed 10/02/2025, , 08/19/2023, Additional history exists Hepatitis B series for 19+ Aged Out N o longer eligible based on patient's age to complete this topic Procedures Procedure Name Priority Date/Time Associated Diagnosis Comments BASIC METABOLIC PANEL Routine 10/02/2025 9:41 AM BLOCK LAYER Hyperglycemia HEMOGLOBIN A1C Routine 10/02/2025 9:41 AM BLOCK LAYER Hyperglycemia PSA TOTAL Routine 10/02/2025 9:41 AM BLOCK LAYER Prostate cancer screening LIPID PANEL W REFLEX MEASURED LDL Routine 10/02/2025 9:41 AM BLOCK LAYER Coronary artery calcification COLONOSCOPY SCREENING Routine 04/21/2024 7:49 AM CDT Screening for colon cancer from Last 3 Months or Most Recently Relevant to Health Maintenance Results * (ABNORMAL) HEMOGLOBIN A1C (10/02/2025 9:41 AM BLOCK LAYER) HEMOGLOBIN A1C 5.8(H) <5.7 % 10/03/2025 5:29 AM BLOCK LAYER [facility] Comment: For someone without known diabetes, a hemoglobin A1c value between 5.7% and 6.4% is consistent with prediabetes and should be confirmed with a follow-up test. For someone with known diabetes, a value <7% indicates that their diabetes is well controlled. A1c targets should be individualized based on duration of diabetes, age, comorbid conditions, and other considerations. This assay result is consistent with an increased risk of diabetes. Currently, no consensus exists regarding use of hemoglobin A1c for diagnosis of diabetes for children. Blood BLOOD SPECIMEN / Unknown [facility] / Unknown 10/02/2025 9:41 AM BLOCK LAYER 10/02/2025 9:41 AM BLOCK LAYER us Dionicio Robert MD CHEMISTRY Final Resu lt [facility] [employer] [address] [place] [address], * LIPID PANEL W REFLEX MEASURED LDL (10/02/2025 9:41 AM BLOCK LAYER) [facility] CHOLESTEROL, TOTAL 119 <200 mg/dL 10/03/2025 4:12 AM BLOCK LAYER [facility] TRIGLYCERIDES 93 <150 mg/dL 10/03/2025 4:12 AM BLOCK LAYER [facility] HDL CHOLESTEROL 64 > OR = 40 mg/dL 10/03/2025 4:12 AM [facility] NON HDL CHOLESTEROL 55 <130 mg/dL (calc) 10/03/2025 4:12 AM [facility] Comment: For patients with diabetes plus 1 major ASCVD risk factor, treating to a non-HDL-C goal of <100 mg/dL (LDL-C of <70 mg/dL) is considered a therapeutic option. CHOL/HDLC RATIO 1.9 <5.0 (calc) 10/03/2025 4:12 AM [facility] LDL-CHOLESTEROL 37 mg/dL (calc) 10/03/2025 4:12 AM [facility] Comment: Reference range: <100 Desirable range <100 mg/dL for primary prevention; <70 mg/dL for patients with CHD or diabetic patients with > or = 2 CHD risk factors. LDL-C is now calculated using the Murray calculation, which is a validated novel method providing better accuracy than the Friedewald equation in the estimation of LDL-C. Dawood LOCO et al. WILL. 2013;310(19): 2539-2572 (http://education.[employer]. [employer]/faq/FBZ113) Blood BLOOD SPECIMEN / Unknown [facility] / Unknown 10/02/2025 9:41 AM BLOCK LAYER 10/02/2025 9:41 AM BLOCK LAYER us Dionicio Robert MD CHEMISTRY Final Resu lt Performing Organization Address [facility] de Phone Number [facility] [address] [address], [place] [phone] * PSA TOTAL (DIAG OR SCREEN) (10/02/2025 9:41 AM BLOCK LAYER) PSA, TOTAL 2.85 < OR = 4.00 ng/mL 10/03/2025 6:15 AM BLOCK LAYER [facility] Comment: The total PSA value from this assay system is standardized against the WHO standard. The test result will be approximately 20% lower when compared to the equimolar-standardized total PSA (Charmaine Darcy). Comparison of serial PSA results should be interpreted with this fact in mind. This test was performed using the Siemens chemiluminescent method. Values obtained from different assay methods cannot be used interchangeably. PSA levels, regardless of value, should not be interpreted as absolute evidence of the presence or absence of disease. Blood BLOOD SPECIMEN / Unknown [facility] / Unknown 10/02/2025 9:41 AM BLOCK LAYER 10/02/2025 9:41 AM BLOCK LAYER Dionicio Robert MD CHEMISTRY Final Resu lt Performing Organization Address [facility] de Phone Number [facility] [address] [address], [place] [phone] * BASIC METABOLIC PANEL (10/02/2025 9:41 AM BLOCK LAYER) SODIUM 139 135 - 146 mmol/L 10/03/2025 4:12 AM BLOCK LAYER [facility] POTASSIUM 4.4 3.5 - 5.3 mmol/L 10/03/2025 4:12 AM BLOCK LAYER [facility] CARBON DIOXIDE 30 20 - 32 mmol/L 10/03/2025 4:12 AM BLOCK LAYER [facility] GLUCOSE 96 65 - 99 mg/dL 10/03/2025 4:12 AM BLOCK LAYER [facility] Comment: Fasting reference interval CALCIUM 9.2 8.6 - 10.3 mg/dL 10/03/2025 4:12 AM BLOCK LAYER [facility] CREATININE 0.89 0.70 - 1.35 mg/dL 10/03/2025 4:12 AM BLOCK LAYER [facility] BUN/CREATININE RATIO SEE NOTE: 6 - 22 (calc) 10/03/2025 4:12 AM BLOCK LAYER [facility] Comment: Not Reported: BUN and Creatinine are within reference range. EGFR 95 > OR = 60 mL/min/1. 73m2 10/03/2025 4:12 AM BLOCK LAYER [facility] UREA NITROGEN (BUN) 9 7 - 25 mg/dL 10/03/2025 4:12 AM BLOCK LAYER [facility] ELECTROLYTE BALANCE 8 7 - 17 mmol/L (calc) 10/03/2025 4:12 AM BLOCK LAYER [facility] CHLORIDE 101 98 - 110 mmol/L 10/03/2025 4:12 AM BLOCK LAYER [facility] Blood BLOOD SPECIMEN / Unknown [facility] / Unknown 10/02/2025 9:41 AM BLOCK LAYER 10/02/2025 9:41 AM BLOCK LAYER us Dionicio Robert MD CHEMISTRY Final Resu lt [facility] [address] [address], * COLONOSCOPY (04/21/2024 7:54 AM CDT) 04/21/2024 7:54 AM CDT Narrative Transcriptions Dawood King MD - 04/21/2024 9:04 AM CDT Patient Name: Bony Leigh Procedure Date: 04/21/2024 Gender: Male Date of : 1960 Admit Type: Outpatient Procedure: Colonoscopy Proceduralist: Dawood King MD , Mihcelle Arroyo, CASSY(Nurse), Joy Han (Nurse) Referring MD: [...] an adequate candidate for conscious sedation. The [id number] was passed through the anus and advanced [...] 7:54 AM Procedure Code(s): --- Professional --- 26642, Colonoscopy, flexible; with removalof tumor(s), polyp(s), or other lesion(s) bysnare technique Diagnosis Code(s): --- Professional --- Z12.11, Encounter for screening formalignant neoplasm of colon D12.3, Benign neoplasm of transverse colon (hepatic flexure or splenic flexure) CPT copyright 2022 [employer]. All rights reserved. The codes documented in this report are preliminary and upon clinical support specialist reviewmay be revised to meet current compliance requirements. Scope In: 8:32:52 AM Scope Withdrawal Time 0 hours 8 minutes 57 seconds Scope Out: 8:51:03 AM Dawood King MD PROCEDURE ORD Final Res ult from Last 3 Months or Most Recently Relevant to Health Maintenance Insurance [facility] MEDICARE ADVANTAGE MR Care Teams Mortarman Relationship Specialty Start Date End Date Dionicio Robert MD [address] [place] [address] PCP - General Family Practice 06/17/16
--- NOTE | 2025-10-03 10:13 | CRLHL7_ITS ---
For Patients: As a result of the Century Cures Act, medical imaging exams and procedure reports are released immediately into your electronic medical record. You may view this report before your referring provider. If you have questions, please contact your health care provider. INDICATION: Fall TECHNIQUE: CT cervical spine without contrast. COMPARISON: None FINDINGS: No evidence of fracture or suspicious bony lesions. Disc Spaces Occipital-C2: Unremarkable. C2/3: Unremarkable. C3/4: Posterior osteophytes causing mild bilateral foraminal stenosis. C4/5: Unremarkable. C5/6: Disc space narrowing with broad posterior osteophytes without significant stenosis. C6/7: Disc space narrowing with anterior and posterior osteophytes without significant stenosis. C7/T1: Unremarkable. Other: Bilateral surgical clips along the jugular chain. IMPRESSION: Mild degenerative changes cervical spine without evidence of cervical spine fracture. Please note that all CT scans at this facility use dose modulation, iterative reconstruction, and/or weight-based dosing when appropriate to reduce radiation dose to as low as reasonably achievable. Dictated by Gen Haro MD @ 10/03/2025 11:24:45 AM (Electronically Signed)
--- NOTE | 2025-10-03 10:13 | CRLHL7_ITS ---
For Patients: As a result of the Cures Act, medical imaging exams and procedure reports are released immediately into your electronic medical record. You may view this report before your referring provider. If you have questions, please contact your health care provider. INDICATION: Fall TECHNIQUE: Chest and right ribs 3 views. COMPARISON: None FINDINGS: Cardiovascular and mediastinum: Normal heart size with mild aortic tortuosity. Lungs and pleural spaces: Lungs are clear. No sign of infiltrate or mass. No sign of pleural effusion. No pneumothorax. Bones and soft tissues: Detailed oblique images of the right ribs demonstrate no fractures or bone lesions. Right upper quadrant surgical clips. IMPRESSION: Unremarkable chest and right ribs. Dictated by Gen Haro MD @ 10/03/2025 11:09:20 AM (Electronically Signed)
--- NOTE | 2025-10-03 10:13 | CRLHL7_ITS ---
For Patients: As a result of the Century Cures Act, medical imaging exams and procedure reports are released immediately into your electronic medical record. You may view this report before your referring provider. If you have questions, please contact your health care provider. INDICATION: Fall TECHNIQUE: CT head without contrast. COMPARISON: None. FINDINGS: CSF spaces: Within normal limits for age. Brain parenchyma: The gillette-white differentiation is normal. No sign of mass, hemorrhage, or midline shift. Skull base and calvarium: The visualized paranasal sinuses and mastoid air cells demonstrate no acute or significant findings. The visualized orbits are grossly unremarkable. No skull fractures. IMPRESSION: Unremarkable noncontrast head CT. Please note that all CT scans at this facility use dose modulation, iterative reconstruction, and/or weight-based dosing when appropriate to reduce radiation dose to as low as reasonably achievable. Dictated by Gen Haro MD @ 10/03/2025 11:21:46 AM (Electronically Signed)
--- NOTE | 2025-10-03 10:14 | CRLHL7_ITS ---
For Patients: As a result of the Cures Act, medical imaging exams and procedure reports are released immediately into your electronic medical record. You may view this report before your referring provider. If you have questions, please contact your health care provider. Indication: Fall Technique: Three views right shoulder Comparison: None Findings/Impression: Bones: No evidence of fracture. Joint spaces: No dislocation. Acromioclavicular osteoarthritis with small inferior osteophytes at the acromioclavicular joint. Soft tissues: Unremarkable. Dictated by Gen Haro MD @ 10/03/2025 11:11:37 AM (Electronically Signed)
--- NOTE | 2025-10-03 10:15 | ED.GENADULT ---
HPI - General Adult General Chief complaint: Syncope/Fainted Stated complaint: blacked out at 4am rt shoulder pain Time Seen by Provider: 10/03/25 09:58 History of Present Illness HPI narrative: Patient is a 65 year white male has had a history of what sounds like atrial fibrillation transiently, biliary colic, hyperlipidemia, cholecystitis, who presents when he took a Seroquel about 3 in the morning, I got called to do snow ploughing at 4 got up went the bathroom but fell into his right shoulder he has pain in his right periscapular area. He is able to move his shoulder. Feels his neck is stiff as well but does not really hurt in the midline especially. He did not have any chest pain, no shortness of breath no seizure activity. The patient has not been sick or ill. He has had good p.o. intake. He denies cardiac history other than the transient rhythm problem, it sounds like he was on an antiarrhythmic for period of time and then that stopped. Related Data Home Medications ?Medication ?Instructions ?Recorded ?Confirmed atorvastatin 40 mg tablet 40 mg PO DAILY 05/02/24 05/03/24 gabapentin 100 mg capsule 100 mg PO DAILY 05/02/24 05/03/24 quetiapine 50 mg tablet (Seroquel) 50 mg PO DAILY 05/02/24 05/03/24 Previous Rx's ?Medication ?Instructions ?Recorded hydrocodone 5 mg-acetaminophen 325 1 - 2 tab PO Q6H PRN Pain #15 tabs 05/05/24 mg tablet Allergies Allergy/AdvReac Type Severity Reaction Status Date / Time No Known Drug Allergies Allergy Verified 05/04/24 08:12 Review of Systems Status of ROS: Reports: 6 or more systems reviewed and unremarkable except as noted in History and below [facility] Medical History Hyperlipidemia ?E78.5 - Hyperlipidemia, unspecified (ICD-10) Surgical History H/O wisdom tooth extraction ?K08.409 - Partial loss of teeth, unspecified cause, unspecified class (ICD-10) S/P exploratory laparotomy ?Z98.890 - Other specified postprocedural states (ICD-10) Social History Narrative: Never smoker, does not drink alcohol regularly. Owns a [employer] business. What is your current living situation?: I presently have a place to live Problems where you live: no known problems Problems where you live details: none In the past 12 months, utilities in danger of being shut off: no In past 12 months, lack of transportation kept you from medical appts, meetings, work, or getting things needed for daily living: no In the past 12 mos, have been you worried that your food would run out before you had money to buy more?: never true In the past 12 mos, the food you bought just didn't last and you didn't have money to buy more?: never true Highest level of school completed/degree received: decline to answer Smoking Status: Former smoker Do you use any of these nicotine containing products: None Second hand tobacco smoke exposure: No How often do you have a drink containing alcohol: never How often do you have six or more drinks on one occasion: Never AUDIT-C Alcohol total score: 0 Non-prescribed substance use: denies use Non-prescribed substance use details: used marijuana years ago Caffeine: No How often does anyone, including family, friends and others, physically hurt you: never How often does anyone, including family, friends and others, insult or talk down to you: never How often does anyone, including family, friends and others, threaten you with harm: never How often does anyone, including family, friends and others, scream or curse at you: never service: No Exam Narrative: Exam Narrative: Objective: Patient's vital signs look within normal limits Alert orient x3 no distress No facial asymmetry, neck supple nontender in the midline Patient has some right mild right periscapular pain, mild pain tenderness with movement of his right shoulder but he is able to fully move the shoulder appears. Chest back abdomen pelvis upper lower extremities unremarkable other mentioned above. His heart is rate and rhythm regular 2/6 systolic murmur Const: Vital Signs, click to edit/add: Vital Signs - 24 hr 10/03/25 09:54 10/03/25 11:12 10/03/25 11:13 Temperature 97.9 F Pulse Rate 78 80 Pulse Rate [Pulse Oximeter] 87 Respiratory Rate 16 21 22 Blood Pressure 103/65 Blood Pressure [Ri ght Upper Arm] 119/76 Pulse Oximetry 98 97 96 Oxygen Delivery Me thod Room Air 10/03/25 11:15 10/03/25 11:22 10/03/25 11:30 Temperature Pulse Rate 77 84 78 Pulse Rate [Pulse Oximeter] Respiratory Rate 21 31 H 16 Blood Pressure 120/86 Blood Pressure [Ri ght Upper Arm] Pulse Oximetry 94 97 96 Oxygen Delivery Me thod 10/03/25 11:42 10/03/25 11:45 Temperature Pulse Rate 80 79 Pulse Rate [Pulse Oximeter] Respiratory Rate 14 19 Blood Pressure 118/75 Blood Pressure [Ri ght Upper Arm] Pulse Oximetry 95 95 Oxygen Delivery Me thod Course Vital Signs Vital signs: Initial Vital Signs Temperature 97.9 F 10/03/25 09:54 Temperature Source Temporal Artery Scan 10/03/25 09:54 Pulse Rate 87 10/03/25 09:54 Respiratory Rate 16 10/03/25 09:54 Blood Pressure 119/76 10/03/25 09:54 Blood Pressure Mean 90 10/03/25 09:54 Blood Pressure Position Sitting 10/03/25 09:54 Pulse Oximetry 98 10/03/25 09:54 Oxygen Delivery Method Room Air 10/03/25 09:54 Vital Signs Temperature 97.9 F 10/03/25 09:54 Pulse Rate 87 10/03/25 09:54 Respiratory Rate 16 10/03/25 09:54 Blood Pressure 119/76 10/03/25 09:54 Pulse Oximetry 98 10/03/25 09:54 Oxygen Delivery Method Room Air 10/03/25 09:54 Temperature 97.9 F 10/03/25 09:54 Pulse Rate 79 10/03/25 11:45 Respiratory Rate 19 10/03/25 11:45 Blood Pressure 118/75 10/03/25 11:42 Pulse Oximetry 95 10/03/25 11:45 Oxygen Delivery Method Room Air 10/03/25 09:54 Medications Administered Medications: Discontinued Medications Generic Name Dose Route Start Last Admin Trade Name Freq PRN Reason Stop Dose Admin Sodium Chloride 1,000 mls @ 6,000 mls/hr 10/03/25 10:15 10/03/25 11:55 0.9 % Sodium Chloride 1000 Ml IV 10/03/25 10:24 Infused .Q10M YOLIE Infusion Medical Decision Making MDM Narrative Medical decision making narrative: [age] male took Seroquel then an hour later was called to do snow ploughing and had syncopal episode in the bathroom injured his right periscapular area and shoulder. The patient this point has no symptoms of coronary artery disease or other concerns. Specifically as no chest pain, shortness of breath, fever, chills. Patient I think at this point will get a head and neck CT for completeness because of his fall and syncopal spell. Will also get a right shoulder x-ray and right rib detail inch chest x-ray. Will get laboratory studies EKG, put the patient on telemetry. Will get a troponin. This happened at 4:00 a.m.. If his troponins negative labs look reassuring EKG and monitoring normal and imaging is negative, I think home with a ZIO patch might be reasonable ibuprofen and ice to the area in the periscapular and shoulder area. Please see addendum. Addendum 12 noon: Patient has an EKG by my read shows right palm right bundle-branch block no acute ST T wave changes, the patient has a negative head CT and neck CT other than degenerative change, he has a negative shoulder and rib x-ray. His labs look reassuring. His CRP is less than 0.5 his troponin is negative white count is normal hemoglobin normal CRP is less than 0.5. Patient feels still asymptomatic. I think putting is out patch on him even though his monitoring here has been stable would be romano. Light activity recommended for the next week follow up with primary care within the next 5-7 days, adequate fluid intake, continue same home medications. Would avoid driving or snow ploughing for the next week Lab Data Labs: Lab Results 10/03/25 Range/Units 10:50 WBC 9.19 (4.50-11.00) K/uL RBC 5.43 (4.30-5.90) m/uL Hgb 15.8 (13.5-17.5) gm/dL Hct 47.5 (37.0-53.0) % MCV 88 (80-100) fL MCH 29 (26-34) pg MCHC 33 (32-36) gm/dL RDW Coeff of Mariano 12.8 (11.5-15.5) % Plt Count 173 (140-440) K/uL Neut % (Auto) 86.7 H (42.0-72.0) % Lymph % (Auto) 5.7 L (20-44) % Towner % (Auto) 6.9 (0.0-11.0) % Eos % (Auto) 0.3 (0.0-7.0) % Baso % (Auto) 0.3 (0.0-3.0) % Neut # (Auto) 8.00 H (1.7-7.0) K/uL Lymph # (Auto) 0.50 L (0.90-2.90) K/uL Towner # (Auto) 0.60 (0.00-0.90) K/UL Eos # (Auto) 0.03 (0.00-0.50) K/uL Baso # (Auto) 0.03 (0.00-0.30) K/uL Abs Immat Gran (auto) 0.01 (0.00-0.30) K/uL Imm/Tot Granulo (auto) 0.1 % Sodium 134 L (135-149) mmol/L Potassium 4.6 (3.6-5.1) mmol/L Chloride 95 L (96-114) mmol/L Carbon Dioxide 30 (20-32) mmol/L Anion Gap 9 (7-15) mEq/L BUN 10 (7-30) mg/dL Creatinine 0.9 (0.5-1.5) mg/dL Estimated Creat Clear 71.25 Estimated GFR 95 ml/min Glucose 119 H (60-115) mg/dL Calcium 9.5 (8.4-10.6) mg/dL Troponin I < 0.01 (0.01-0.04) ng/mL C-Reactive Protein < 0.5 L (0.5-1.0) mg/dL Discharge Plan Discharge Clinical Impression: Syncope, Injury of right scapular region Patient Disposition: Home w/ Parent or Adult Condition: Stable Additional Instructions: Follow-up with your doctor that within next 5-7 days, light activity, recommend good fluid intake and no driving for the next week, especially snow ploughing. Activity Level: Light activity Discharge Diet: Regular Prescriptions: No Action atorvastatin 40 mg tablet 40 mg PO DAILY gabapentin 100 mg capsule 100 mg PO DAILY quetiapine [Seroquel] 50 mg tablet 50 mg PO DAILY hydrocodone-acetaminophen 5-325 mg Tablet 1 - 2 tab PO Q6H PRN (Reason: Pain) Qty: 15 0RF Follow Up/Referrals: Dionicio Robert MD [Primary Care Provider, Family Practice] Stand Alone Forms: MyHealth Info Instructions
[2025-10-03 11:02] LABS: Hematocrit* 47.5 % (37.0-53.0); Hemoglobin* 15.8 gm/dL (13.5-17.5); Immature Granulocytes Abs Auto 0.01 K/uL (0.00-0.30); Immature Granulocytes Pct Auto 0.1 %; Mean Corpuscular HGB Conc 33 gm/dL (32-36); Mean Corpuscular Hemoglobin 29 pg (26-34); Mean Corpuscular Volume 88 fL (80-100); RDW Coefficient of Variation % 12.8 % (11.5-15.5); Red Blood Count* 5.43 m/uL (4.30-5.90); White Blood Count* 9.19 K/uL (4.50-11.00)
[2025-10-03 11:16] LABS: Lymphocytes Absolute Auto 0.50 K/uL (0.90-2.90); Slide Review Reflex No
[2025-10-03 11:17] LABS: Chloride* 95 mmol/L (96-114); Potassium* 4.6 mmol/L (3.6-5.1); Sodium* 134 mmol/L (135-149)
[2025-10-03 11:21] LABS: Anion Gap 9 mEq/L (7-15); Blood Urea Nitrogen* 10 mg/dL (7-30); Calcium* 9.5 mg/dL (8.4-10.6); Carbon Dioxide* 30 mmol/L (20-32); Creatinine* 0.9 mg/dL (0.5-1.5); Est. Creatinine Clearance* 71.25; Estimated Glomerular Filt Rate 95 ml/min; Glucose* 119 mg/dL (60-115)
== END 2025-10-03 12:21 | disposition home or self-care (01) ==
PROVIDERS: Emergency Provider Family Medicine; PCP Family Medicine
DX: S49.91XA Unspecified injury of right shoulder and upper arm, initial encounter (principal); W18.30XA Fall on same level, unspecified, initial encounter; R55 Syncope and collapse
CPT/HCPCS: 36415; 70450; 71101; 72125; 73030; 80048; 84484; 85025; 86140; 93005; 93246; 94761; 96360; 96361; 99284; 99285; J7030